=== PATIENT | male | born 2000 | race Hispanic/Latino ===

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

== ENCOUNTER 2018-01-14 09:48 | Emergency (ER) | payer OTHER ==
--- OUTSIDE RECORDS SUMMARY | 2018-01-14 09:50 | XMS REPORT | Clinical Summary ---
:2000 Author Organization [facility] Address [address] [place] [address] Care Team Providers Name Role Phone Miguel Lux Primary Care Provider Allergies No Known Allergies Medications No known medications Active Problems Not on file Social History Tobacco Use Types Packs/Day Years Used Date Never Smoker Alcohol Use Drinks/Week oz/Week Comments No Sex Assigned at Date Recorded Not on file Job Start Date Occupation Industry Not on file Not on file Not on file Travel History Travel Start Travel End No recent travel history available. Last Filed Vital Signs Not on file Plan of Treatment Not on file Results Not on fileafter 01/13/2017 Insurance Payer Benefit Plan / Group Subscriber ID Type Phone Address [employer] - [employer] C[employer] HMO/POS/OPEN ACCESS xxxxxxxxxxx HMO/POS
[2018-01-14 10:56] LABS: Absolute Lymphocytes (CBC) 1.8 K/uL (0.7-4.9); Absolute Monocytes 0.5 K/uL (0.1-1.3); Basophils % 0.6 % (0-1.3); Eosinophils % 1.1 % (0-4.4); Hematocrit 45.6 % (39.6-49.0); Lymphocytes % 33.7 % (15.3-44.8); MCH 28.9 pg (27.0-35.0); MCV 84.4 fL (80-100); MPV 8.4 fL (7.6-11.3); Monocytes % 9.1 % (3.3-12.3)
[2018-01-14] MEDS ORDERED: ONDANSETRON 4 MG/2 ML VIAL ONE (10:57)
[2018-01-14] MEDS ORDERED: NA CHLORIDE 0.9% 1,000 ML ONE (10:57)
[2018-01-14 11:19] LABS: ALT/SGPT 18 U/L (12-78); AST/SGOT 18 U/L (15-37); Albumin 4.4 g/dL (3.4-5.0); Alkaline Phosphatase 87 U/L (45-117); BUN Blood Urea Nitrogen 13 mg/dL (7-18); Bicarbonate 28 mmol/L (21-32); Bilirubin Direct 0.2 mg/dL (0-0.2); Bilirubin Total 0.6 mg/dL (0.2-1.0); Glucose Level 84 mg/dL (74-106); Lipase 80 U/L (73-393); Potassium 3.8 mmol/L (3.5-5.1); Protein, Total 8.4 g/dL (6.4-8.2); Sodium Level 140 mmol/L (136-145)
--- NOTE | 2018-01-14 11:57 | ER ---
Nurse's Notes [facility] Name: Xander Whipple Age: 17 yrs Sex: Male : 2000 Arrival Date: 01/14/2018 Time: 09:50 Bed 5 Private MD: Miguel Lux M Diagnosis: Vomiting;Unspecified abdominal pain Presentation: 01/14 10:12 Presenting complaint: Patient states: vomiting X 3 days, three times this morning, iw denies abd pain, has chest pain when he vomits sometimes, denies diarrhea. Transition of care: patient was not received from another setting of care. Onset of symptoms was January 12, 2018. Risk Assessment: Do you want to hurt yourself or someone else? Patient reports no desire to harm self or others. Initial Sepsis Screen: Does the patient meet any 2 criteria? No. Patient's initial sepsis screen is negative. Does the patient have a suspected source of infection? No. Patient's initial sepsis screen is negative. Care prior to arrival: None. 10:12 Method Of Arrival: Ambulatory iw 10:12 Acuity: LUX 3 iw Historical: - Allergies: 10:13 NKA; iw - Home Meds: 10:13 None [Active]; iw - PMHx: 10:13 None; iw - PSHx: 10:13 None; iw - Immunization history:: Adult Immunizations up to date. - Social history:: Smoking status: Patient/guardian denies using tobacco. - Ebola Screening: : Patient negative for fever greater than or equal to 101.5 degrees Fahrenheit, and additional compatible Ebola Virus Disease symptoms Patient denies exposure to infectious person Patient denies travel to an Ebola-affected area in the 21 days before illness onset No symptoms or risks identified at this time. - Family history:: not pertinent. - Hospitalizations: : No recent hospitalization is reported. Screenin:45 Abuse screen: Denies threats or abuse. Denies injuries from another. Nutritional jl7 screening: No deficits noted. Tuberculosis screening: No symptoms or risk factors identified. Fall Risk IV access (20 points). [place] Fall Scale indicates No Risk (0-24 pts). Assessment: 10:28 General: Appears comfortable, Behavior is calm, cooperative. Pain: Complains of pain in aa5 right upper quadrant, left upper quadrant, right lower quadrant and left lower quadrant Pain does not radiate. Pain currently is 0 out of 10 on a pain scale. Quality of pain is described as crampy, Pain began 2-3 days ago. Is episodic, lasting a few seconds. Neuro: Level of Consciousness is awake, alert, obeys commands, Oriented to person, place, time, situation. Cardiovascular: Heart tones S1 S2 present Rhythm is regular. Respiratory: Airway is patent Respiratory effort is even, unlabored, Respiratory pattern is regular, symmetrical, Breath sounds are clear bilaterally. GI: Abdomen is flat, non-distended, Bowel sounds present X 4 quads. Abd is soft and non tender X 4 quads. Reports nausea, vomiting, Patient currently denies diarrhea. : No signs and/or symptoms were reported regarding the genitourinary system. EENT: Oral mucosa is dry. Derm: Skin is pink, warm \T\ dry. Musculoskeletal: Range of motion: intact in all extremities. 11:30 Reassessment: Patient appears in no apparent distress at this time. Patient and/or jl7 family updated on plan of care and expected duration. Pain level reassessed. Patient is alert, oriented x 3, equal unlabored respirations, skin warm/dry/pink. Vital Signs: 10:13 BP 120 / 88; Pulse 56; Resp 16; Temp 97.8(TE); Pulse Ox 100% on R/A; Weight 61.23 kg; iw Height 5 ft. 8 in. (172.72 cm); Pain 0/10; 12:05 BP 122 / 85; Pulse 56; Resp 16 S; Pulse Ox 100% on R/A; jl7 10:13 Body Mass Index 20.53 (61.23 kg, 172.72 cm) iw ED Course: 09:50 Patient arrived in ED. sb2 09:51 Miguel Lux MD is Private Physician. sb2 10:13 Triage completed. iw 10:13 Arm band placed on. iw 10:23 Kiko Mayers MD is Attending Physician. rn 10:39 Malu Acharya RN is Primary Nurse. aa5 10:40 Initial lab(s) drawn, by me, sent to lab. Inserted saline lock: 22 gauge in right aa5 antecubital area, using aseptic technique. Blood collected. 10:45 Patient has correct armband on for positive identification. Placed in gown. Bed in low jl7 position. Call light in reach. Side rails up X 1. Pulse ox on. NIBP on. 12:07 No provider procedures requiring assistance completed. IV discontinued, intact, jl7 bleeding controlled, No redness/swelling at site. Pressure dressing applied. Administered Medications: 10:50 Drug: NS 0.9% 1000 ml Route: IV; Rate: 1000 ml; Site: right antecubital; aa5 11:50 Follow up: IV Status: Completed infusion jl7 10:50 Drug: Zofran 4 mg Route: IVP; Site: right antecubital; aa5 11:00 Follow up: Response: No adverse reaction aa5 Point of Care Testing: Blood Glucose: 10:40 Blood Glucose: 91 mg/dL; aa5 Ranges: Outcome: 11:56 Discharge ordered by . rn 12:07 Discharged to home ambulatory. jl7 12:07 Condition: stable 12:07 Discharge instructions given to patient, family, Instructed on discharge instructions, follow up and referral plans. medication usage, Demonstrated understanding of instructions, follow-up care, medications, Prescriptions given X 1. 12:07 Patient left the ED. jl7 Signatures: Kymberly Pal, RN Kiko Yuan MD MD rn Calderon, Audri, RN RN aa5 Altagracia Johnson RN RN jl7 Gelndy Zuluaga2
--- NOTE | 2018-01-14 11:57 | EDPHYS ---
Physician Documentation [facility] Name: Xander Whipple Age: 17 yrs Sex: Male : 2000 Arrival Date: 01/14/2018 Time: 09:50 Bed 5 Private MD: Miguel Lux M ED Physician Kiko Mayers HPI: 01/14 11:51 This 17 yrs old Male presents to ER via Ambulatory with complaints of Vomiting.rn 11:51 The patient presents to the emergency department with nausea, vomiting, abdominal pain. rn Onset: The symptoms/episode began/occurred 2 day(s) ago. Possible causes: unknown. The symptoms are aggravated by food , The symptoms are alleviated by nothing. Severity of symptoms: At their worst the symptoms were mild in the emergency department the symptoms have improved. The patient has not experienced similar symptoms in the past. 11:52 REports 2 days of vomiting, not able to keep anything down, + intermittent abd rn cramping, no current pain, no diarrhea, no fever, no known sick contacts. . Historical: - Allergies: 10:13 NKA; iw - Home Meds: 10:13 None [Active]; iw - PMHx: 10:13 None; iw - PSHx: 10:13 None; iw - Immunization history:: Adult Immunizations up to date. - Social history:: Smoking status: Patient/guardian denies using tobacco. - Ebola Screening: : Patient negative for fever greater than or equal to 101.5 degrees Fahrenheit, and additional compatible Ebola Virus Disease symptoms Patient denies exposure to infectious person Patient denies travel to an Ebola-affected area in the 21 days before illness onset No symptoms or risks identified at this time. - Family history:: not pertinent. - Hospitalizations: : No recent hospitalization is reported. ROS: 11:52 Constitutional: Negative for fever, chills, and weight loss, Eyes: Negative for injury, rn pain, redness, and discharge, Neck: Negative for injury, pain, and swelling, Cardiovascular: Negative for chest pain, palpitations, and edema, Respiratory: Negative for shortness of breath, cough, wheezing, and pleuritic chest pain, Abdomen/GI: + nausea/vomiting/abd pain MS/Extremity: Negative for injury and deformity, Skin: Negative for injury, rash, and discoloration, Neuro: Negative for headache, numbness, tingling, and seizure. Exam: 11:52 Constitutional: This is a well developed, well nourished patient who is awake, alert, rn and in no acute distress. Ambulatory to room without difficulty Head/Face: Normocephalic, atraumatic. Eyes: Pupils equal round and reactive to light, extra-ocular motions intact. Lids and lashes normal. Conjunctiva and sclera are non-icteric and not injected. Cornea within normal limits. Periorbital areas with no swelling, redness, or edema. ENT: dry MM Cardiovascular: Regular rate and rhythm, No pulse deficits. Respiratory: No increased work of breathing, no retractions or nasal flaring. Abdomen/GI: soft, non-tender, no masses, no guarding MS/ Extremity: Pulses equal, no cyanosis. Neurovascular intact. Full, normal range of motion. Equal circumference. Neuro: Awake and alert, GCS 15, oriented to person, place, time, and situation. Cranial nerves II-XII grossly intact. Motor strength 5/5 in all extremities. Sensory grossly intact. Cerebellar exam normal. Normal gait. Vital Signs: 10:13 BP 120 / 88; Pulse 56; Resp 16; Temp 97.8(TE); Pulse Ox 100% on R/A; Weight 61.23 kg; iw Height 5 ft. 8 in. (172.72 cm); Pain 0/10; 12:05 BP 122 / 85; Pulse 56; Resp 16 S; Pulse Ox 100% on R/A; jl7 10:13 Body Mass Index 20.53 (61.23 kg, 172.72 cm) iw MDM: 10:23 Patient medically screened. rn 11:52 Differential diagnosis: Nonspecific abd pain, viral gastroenteritis, gastroenteritis. rn Differential diagnosis: appendicitis. Data reviewed: vital signs. Data reviewed: nurses notes, lab test result(s), and as a result, I will discharge patient. Counseling: I had a detailed discussion with the patient and/or guardian regarding: the historical points, exam findings, and any diagnostic results supporting the discharge/admit diagnosis, lab results, the need for outpatient follow up, to return to the emergency department if symptoms worsen or persist or if there are any questions or concerns that arise at home. Response to treatment: the patient's symptoms have markedly improved after treatment, and as a result, I will discharge patient. Special discussion: Based on the patient's Hx, exam, and Dx evaluation, there is no indication for emergent surgery or inpatient Tx. It is understood by the patient/guardian that if the Sx's persist or worsen they need to return immediately for re-evaluation. I discussed with the patient/guardian in detail that at this point there is no indication for admission to the hospital. It is understood, however, that if the symptoms persist or worsen the patient needs to return immediately for re-evaluation. ED course: Normal bloodwork, no vomiting here, no abd pain here, will dc home with pcp f/u and prn zofran, return precautions given and understood. . 01/14 10:31 Order name: Basic Metabolic Panel; Complete Time: 11:35 rn 01/14 10:31 Order name: CBC with Diff; Complete Time: 11:35 rn 01/14 10:31 Order name: Hepatic Function; Complete Time: 11:35 rn 01/14 10:31 Order name: Lipase; Complete Time: 11:35 rn 01/14 10:31 Order name: Flu; Complete Time: 11:35 rn 01/14 10:31 Order name: IV Saline Lock; Complete Time: 10:39 rn 01/14 10:31 Order name: Labs collected and sent; Complete Time: 10:39 rn 01/14 10:32 Order name: Glucose Level; Complete Time: 10:39 rn Administered Medications: 10:50 Drug: NS 0.9% 1000 ml Route: IV; Rate: 1000 ml; Site: right antecubital; aa5 11:50 Follow up: IV Status: Completed infusion jl7 10:50 Drug: Zofran 4 mg Route: IVP; Site: right antecubital; aa5 11:00 Follow up: Response: No adverse reaction aa5 Point of Care Testing: Blood Glucose: 10:40 Blood Glucose: 91 mg/dL; aa5 Ranges: Critical Glucose Levels:Adult <50 mg/dl or >400 mg/dl <40 mg/dl or >180 mg/dl Disposition: 01/14/18 11:56 Discharged to Home. Impression: Vomiting, Unspecified abdominal pain. - Condition is Stable. - Discharge Instructions: Abdominal Pain, Adult, Nausea and Vomiting, Adult. - Prescriptions for Zofran ODT 4 mg Oral tablet,disintegrating - place 1 tablet by TRANSLINGUAL route every 8 hours As needed; 20 tablet. - Medication Reconciliation Form, Thank You Letter, Antibiotic Education, Prescription Opioid Use form. - Follow up: Private Physician; When: As needed; Reason: Recheck today's complaints, Re-evaluation by your physician. - Problem is new. - Symptoms have improved. Signatures: Dispatcher [employer] EDKymberly Krishnan, RN RN Kiko Hilton MD MD rn Calderon, Audri RN RN aa5 Altagracia Johnson RN RN jl7 Corrections: (The following items were deleted from the chart) 12:07 11:56 01/14/2018 11:56 Discharged to Home. Impression: Vomiting; Unspecified abdominal jl7 pain. Condition is Stable. Forms are Medication Reconciliation Form, Thank You Letter, Antibiotic Education, Prescription Opioid Use. Follow up: Private Physician; When: As needed; Reason: Recheck today's complaints, Re-evaluation by your physician. Problem is new. Symptoms have improved. rn
== END 2018-01-14 12:07 | disposition home or self-care (01) ==
LOC: ER 09:48
DX: R11.10 Vomiting, unspecified (principal); R10.9 Unspecified abdominal pain
CPT/HCPCS: 36415; 80048; 80076; 82962; 83690; 85025; 87804; 96361; 96374; 99284; J2405; J7030

== ENCOUNTER 2018-01-18 19:06 | Emergency (ER) | payer OTHER ==
--- OUTSIDE RECORDS SUMMARY | 2018-01-18 19:08 | XMS REPORT | Clinical Summary ---
:2000 Author Organization [facility] Address [address] [place] [address] Care Team Providers Name Role Phone Miguel [...] Not on file Results Not on fileafter 01/17/2017 Insurance Payer Benefit Plan / Group Subscriber ID Type Phone Address [employer] - [employer] C[employer] CIGNA HMO/POS/OPEN ACCESS xxxxxxxxxxx HMO/POS
[2018-01-18] MEDS ORDERED: ONDANSETRON 4 MG/2 ML VIAL ONE (20:25)
[2018-01-18] MEDS ORDERED: FAMOTIDINE 20 MG/2 ML VIAL IV ONE (20:26)
[2018-01-18 22:32] LABS: Absolute Lymphocytes (CBC) 3.7 K/uL (0.7-4.9); Absolute Monocytes 0.8 K/uL (0.1-1.3); Absolute Neutrophil 3.5 K/uL (1.8-8.0); Basophils % 0.7 % (0-1.3); Eosinophils % 0.9 % (0-4.4); Hematocrit 43.4 % (39.6-49.0); Lymphocytes % 45.9 % (15.3-44.8); MCH 29.3 pg (27.0-35.0); MCV 84.1 fL (80-100); MPV 8.9 fL (7.6-11.3); Monocytes % 9.5 % (3.3-12.3); RBC Red Blood Cell Count 5.15 M/uL (4.33-5.43)
[2018-01-18 22:39] LABS: Albumin 4.4 g/dL (3.4-5.0); Bilirubin Direct 0.2 mg/dL (0-0.2); Bilirubin Total 0.6 mg/dL (0.2-1.0); Potassium 3.7 mmol/L (3.5-5.1); Protein, Total 8.2 g/dL (6.4-8.2)
--- NOTE | 2018-01-19 00:30 | ER ---
Nurse's Notes [facility] Name: Xander Whipple Age: 17 yrs Sex: Male : 2000 Arrival Date: 01/18/2018 Time: 19:07 Bed 14 Private MD: Miguel Lux M Diagnosis: Upper abdominal pain, unspecified;Vomiting;Gastritis, unspecified Presentation: 01/18 19:54 Presenting complaint: Patient states: he hasn't be able to eat or drink without aa1 vomiting x 4 days. Mother reports pt has been under a lot of stress and has been depressed lately and is not sure if that may be contributing to his symptoms. Denies SI or drug use. Reports he recently stopped smoking marijuana 2 weeks ago. Transition of care: patient was not received from another setting of care. Onset of symptoms was January 14, 2018. Risk Assessment: Do you want to hurt yourself or someone else? Patient reports no desire to harm self or others. Initial Sepsis Screen: Does the patient meet any 2 criteria? Yes Does the patient have a suspected source of infection? No. Patient's initial sepsis screen is negative. Care prior to arrival: None. 19:54 Method Of Arrival: Ambulatory aa1 19:54 Acuity: LUX 3 aa1 Triage Assessment: 19:54 General: Appears in no apparent distress. comfortable, Behavior is calm, cooperative, aa1 appropriate for age, quiet. Historical: - Allergies: 19:58 NKA; aa1 - Home Meds: 19:58 Zofran Oral [Active]; aa1 - PMHx: 19:58 Depression; aa1 - PSHx: 19:58 None; aa1 - Immunization history:: Adult Immunizations up to date. - Social history:: Smoking status: Patient/guardian denies using tobacco. - Ebola Screening: : Patient denies exposure to infectious person Patient denies travel to an Ebola-affected area in the 21 days before illness onset. Screenin:59 Abuse screen: Denies threats or abuse. Denies injuries from another. Nutritional aa1 screening: Has had N/V for 3 or more days. Tuberculosis screening: No symptoms or risk factors identified. Fall Risk None identified. Assessment: 20:00 General: Appears in no apparent distress. uncomfortable, Behavior is calm, cooperative, jb4 appropriate for age, Reports depression and past SI, no current SI report.. Pain: Complains of pain in epigastric area Pain does not radiate. Pain currently is 8 out of 10 on a pain scale. Quality of pain is described as crampy. Neuro: Level of Consciousness is awake, alert, obeys commands, Oriented to person, place, time, situation. Cardiovascular: Patient's skin is warm and dry. Respiratory: Airway is patent Respiratory effort is even, unlabored, Respiratory pattern is regular, symmetrical. GI: Abdomen is flat, non-distended, Bowel sounds present X 4 quads. Abd is soft and non tender in left upper quadrant, right lower quadrant and left lower quadrant Abdomen is tender to palpation in right upper quadrant. : No signs and/or symptoms were reported regarding the genitourinary system. EENT: No signs and/or symptoms were reported regarding the EENT system. Derm: Skin is intact, Skin is pink, warm \T\ dry. Musculoskeletal: Circulation, motion, and sensation intact. 21:36 Reassessment: Patient appears in no apparent distress at this time. Patient and/or jb4 family updated on plan of care and expected duration. Pain level reassessed. Patient is alert, oriented x 3, equal unlabored respirations, skin warm/dry/pink. 22:30 Reassessment: Patient appears in no apparent distress at this time. Patient and/or jb4 family updated on plan of care and expected duration. Pain level reassessed. Patient is alert, oriented x 3, equal unlabored respirations, skin warm/dry/pink. 23:44 Reassessment: Patient appears in no apparent distress at this time. Patient and/or jb4 family updated on plan of care and expected duration. Pain level reassessed. Patient is alert, oriented x 3, equal unlabored respirations, skin warm/dry/pink. Pt is back from CT. 01/19 00:30 Reassessment: Patient appears in no apparent distress at this time. Patient and/or jb4 family updated on plan of care and expected duration. Pain level reassessed. Patient is alert, oriented x 3, equal unlabored respirations, skin warm/dry/pink. Vital Signs: 01/18 19:54 BP 102 / 91; Pulse 61; Resp 16; Temp 98.1; Pulse Ox 97% on R/A; Weight 60.78 kg; Height aa1 5 ft. 8 in. (172.72 cm); Pain 5/10; 20:00 BP 102 / 91; Pulse 58; Resp 16; Pulse Ox 100% on R/A; mt 20:33 BP 118 / 76; Pulse 59; Resp 16; Pulse Ox 100% on R/A; mt 21:30 BP 116 / 74; Pulse 55; Resp 16; Pulse Ox 100% on R/A; jb4 22:32 BP 109 / 70; Pulse 59; Resp 16; Pulse Ox 98% on R/A; mt 23:44 BP 124 / 76; Pulse 53; Resp 16; Pulse Ox 99% on R/A; jb4 01/19 00:30 BP 115 / 70; Pulse 88; Resp 16; Pulse Ox 97% on R/A; jb4 01/18 19:54 Body Mass Index 20.37 (60.78 kg, 172.72 cm) aa1 ED Course: 01/18 19:07 Patient arrived in ED. al2 19:07 Miguel Lux MD is Private Physician. al2 19:42 Elliot Seth MD is Attending Physician. gs 19:54 Arm band placed on right wrist. aa1 19:56 Triage completed. aa1 19:59 Patient has correct armband on for positive identification. Placed in gown. Bed in low aa1 position. Call light in reach. Pulse ox on. NIBP on. Warm blanket given. 20:12 David Arias RN is Primary Nurse. jb4 20:17 Inserted saline lock: 20 gauge in right antecubital area, using aseptic technique. mt Blood collected. 23:27 Patient moved to [place] via wheelchair. kw1 23:34 CT completed. Patient tolerated procedure well. Patient moved back from [place]. kw1 01/19 00:28 Raji Cox MD is Referral Physician. gs 00:38 No provider procedures requiring assistance completed. IV discontinued, intact, jb4 bleeding controlled. Administered Medications: 01/18 20:48 Drug: Zofran 4 mg Route: IVP; Site: right antecubital; jb4 01/19 00:39 Follow up: Response: No adverse reaction; Nausea is decreased jb4 01/18 20:48 Drug: Pepcid 20 mg Route: IVP; Site: right antecubital; jb4 01/19 00:38 Follow up: Response: No adverse reaction; Nausea is decreased jb4 Outcome: 00:29 Discharge ordered by . 00:38 Discharged to home ambulatory, with family. jb4 00:38 Condition: stable 00:38 Discharge instructions given to patient, family, Instructed on discharge instructions, follow up and referral plans. medication usage, Demonstrated understanding of instructions, follow-up care, medications, Prescriptions given X 2. 00:40 Patient left the ED. jb4 Signatures: Andra Orozco RN RN aa1 David Arias RN RN jb4 Ana Henriquez mt, Gregory, MD MD Tereza Hwang kw1 Sara Carrion2
--- NOTE | 2018-01-19 00:30 | EDPHYS ---
Physician Documentation [facility] Name: Xander Whipple Age: 17 yrs Sex: Male : 2000 Arrival Date: 01/18/2018 Time: 19:07 Bed 14 Private MD: Miguel Lux M ED Physician Elliot Seth HPI: 01/19 00:22 This 17 yrs old Male presents to ER via Ambulatory with complaints of gs Vomiting, Weakness. 00:22 The patient presents to the emergency department with vomiting. Onset: The gs symptoms/episode began/occurred 1 week(s) ago. Possible causes: unknown. Associated signs and symptoms: Pertinent positives: abdominal pain, vomiting. Severity of symptoms: At their worst the symptoms were moderate in the emergency department the symptoms are unchanged. The patient has experienced similar episodes in the past, a few times. The patient has been recently seen at the [facility] Emergency Department, last week. Historical: - Allergies: 01/18 19:58 NKA; aa1 - Home Meds: 19:58 Zofran Oral [Active]; aa1 - PMHx: 19:58 Depression; aa1 - PSHx: 19:58 None; aa1 - Immunization history:: Adult Immunizations up to date. - Social history:: Smoking status: Patient/guardian denies using tobacco. - Ebola Screening: : Patient denies exposure to infectious person Patient denies travel to an Ebola-affected area in the 21 days before illness onset. ROS: 01/19 00:22 All other systems are negative. gs Exam: 00:22 Head/Face: Normocephalic, atraumatic. Eyes: Pupils equal round and reactive to light, gs extra-ocular motions intact. Lids and lashes normal. Conjunctiva and sclera are non-icteric and not injected. Cornea within normal limits. Periorbital areas with no swelling, redness, or edema. ENT: Nares patent. No nasal discharge, no septal abnormalities noted. Tympanic membranes are normal and external auditory canals are clear. Oropharynx with no redness, swelling, or masses, exudates, or evidence of obstruction, uvula midline. Mucous membranes moist. Neck: Trachea midline, no thyromegaly or masses palpated, and no cervical lymphadenopathy. Supple, full range of motion without nuchal rigidity, or vertebral point tenderness. No Meningismus. Chest/axilla: Normal chest wall appearance and motion. Nontender with no deformity. No lesions are appreciated. Cardiovascular: Regular rate and rhythm with a normal S1 and S2. No gallops, murmurs, or rubs. Normal PMI, no JVD. No pulse deficits. Respiratory: Lungs have equal breath sounds bilaterally, clear to auscultation and percussion. No rales, rhonchi or wheezes noted. No increased work of breathing, no retractions or nasal flaring. Back: No spinal tenderness. No costovertebral tenderness. Full range of motion. Skin: Warm, dry with normal turgor. Normal color with no rashes, no lesions, and no evidence of cellulitis. MS/ Extremity: Pulses equal, no cyanosis. Neurovascular intact. Full, normal range of motion. Neuro: Awake and alert, GCS 15, oriented to person, place, time, and situation. Cranial nerves II-XII grossly intact. Motor strength 5/5 in all extremities. Sensory grossly intact. Cerebellar exam normal. Normal gait. 00:22 Constitutional: The patient appears alert, awake. 00:22 Abdomen/GI: Palpation: mild abdominal tenderness, in the epigastric area. Vital Signs: 01/18 19:54 BP 102 / 91; Pulse 61; Resp 16; Temp 98.1; Pulse Ox 97% on R/A; Weight 60.78 kg; Height aa1 5 ft. 8 in. (172.72 cm); Pain 5/10; 20:00 BP 102 / 91; Pulse 58; Resp 16; Pulse Ox 100% on R/A; mt 20:33 BP 118 / 76; Pulse 59; Resp 16; Pulse Ox 100% on R/A; mt 21:30 BP 116 / 74; Pulse 55; Resp 16; Pulse Ox 100% on R/A; jb4 22:32 BP 109 / 70; Pulse 59; Resp 16; Pulse Ox 98% on R/A; mt 23:44 BP 124 / 76; Pulse 53; Resp 16; Pulse Ox 99% on R/A; jb4 01/19 00:30 BP 115 / 70; Pulse 88; Resp 16; Pulse Ox 97% on R/A; jb4 01/18 19:54 Body Mass Index 20.37 (60.78 kg, 172.72 cm) aa1 MDM: 01/18 19:55 Patient medically screened. 01/19 00:22 Differential diagnosis: Nonspecific abd pain, gastritis, pancreatitis, appendicitis. Data reviewed: vital signs, nurses notes. Response to treatment: the patient's symptoms have markedly improved after treatment, and as a result, I will discharge patient. 01/18 20:02 Order name: Basic Metabolic Panel 01/18 20:02 Order name: CBC with Diff 01/18 20:02 Order name: Hepatic Function 01/18 20:02 Order name: Lipase 01/18 22:34 Order name: CBC with Automated Diff; Complete Time: 23:38 EDMS 01/18 22:39 Order name: Basic Metabolic Panel; Complete Time: 23:38 EDMS 01/18 20:02 Order name: IV Saline Lock; Complete Time: 20:18 01/18 20:02 Order name: Labs collected and sent; Complete Time: 20:18 01/18 20:02 Order name: CT Abd/Pelvis - W/Contrast 01/18 22:39 Order name: Liver (Hepatic) Function; Complete Time: 23:38 EDMS 01/18 22:39 Order name: Lipase; Complete Time: 23:38 EDMS Administered Medications: 01/18 20:48 Drug: Zofran 4 mg Route: IVP; Site: right antecubital; [facility] 01/19 00:39 Follow up: Response: No adverse reaction; Nausea is decreased [facility] 01/18 20:48 Drug: Pepcid 20 mg Route: IVP; Site: right antecubital; [facility] 01/19 00:38 Follow up: Response: No adverse reaction; Nausea is decreased [facility] Disposition: 01/19/18 00:29 Discharged to Home. Impression: Upper abdominal pain, unspecified, Vomiting, Gastritis, unspecified. - Condition is Stable. - Discharge Instructions: Nausea and Vomiting, Adult. - Prescriptions for Zofran 4 mg Oral Tablet - take 1 tablet by ORAL route every 12 hours As needed; 10 tablet. Pepcid 20 mg Oral Tablet - take 1 tablet by ORAL route every 12 hours; 60 tablet. - Medication Reconciliation Form, Thank You Letter, Antibiotic Education, Prescription Opioid Use form. - Follow up: Raji Cox MD; When: 2 - 3 days; Reason: Re-evaluation by your physician. Signatures: Dispatcher [employer] EDMS Snow Orozcossa, RN RN aa1 David Arias RN RN jb4 Elliot Seth MD MD gs Corrections: (The following items were deleted from the chart) 00:40 00:29 01/19/2018 00:29 Discharged to Home. Impression: Upper abdominal pain, jb4 unspecified; Vomiting; Gastritis, unspecified. Condition is Stable. Forms are Medication Reconciliation Form, Thank You Letter, Antibiotic Education, Prescription Opioid Use. Follow up: Raji Cox; When: 2 - 3 days; Reason: Re-evaluation by your physician. gs
--- NOTE | 2018-01-19 11:58 | RAD REPORT ---
EXAM DESCRIPTION: CTAbdomen Pelvis W Contrast - 01/19/2018 4:40 am CLINICAL HISTORY: Abdominal pain. abd pain COMPARISON: No comparisons TECHNIQUE: Biphasic CT imaging of the abdomen and pelvis was performed with 100 ml non-ionic IV cont rast. All CT scans are performed using dose optimization technique as appropriate and may include automated exposure control or mA/KV adjustment according to patient size. FINDINGS: The lung bases are clear. The liver, spleen, pancreas, adrenal glands and kidneys are within normal limits. No bowel obstruction, free air, free fluid or abscess. The appendix is normal. No evidence of signi ficant lymphadenopathy. No suspicious bony findings. IMPRESSION: No acute intra-abdominal or pelvic finding.
[2018-01-19 12:33] VITALS: TEMP 98.1
[2018-01-19 12:42] VITALS: BP 115/70; O2SAT 97
== END 2018-01-19 00:40 | disposition home or self-care (01) ==
LOC: ER 19:06
DX: K29.70 Gastritis, unspecified, without bleeding (principal); R10.10 Upper abdominal pain, unspecified; F32.9 Major depressive disorder, single episode, unspecified
CPT/HCPCS: 36415; 74177; 80048; 80076; 83690; 85025; 96374; 96375; 99284; J2405; Q9967

== ENCOUNTER 2018-02-02 23:23 | Emergency (ER) | payer OTHER ==
--- OUTSIDE RECORDS SUMMARY | 2018-02-02 23:25 | XMS REPORT | Clinical Summary ---
:2000 Author Organization [facility] Address [address] [place] [address] Care Team Providers Name Role Phone Miguel [...] Not on file Results Not on fileafter 02/01/2017 Insurance Payer Benefit Plan / Group Subscriber ID Type Phone Address [employer] - [employer] C[employer] C[employer] HMO/POS/OPEN ACCESS xxxxxxxxxxx HMO/POS
--- NOTE | 2018-02-02 23:55 | EDPHYS ---
Physician Documentation [facility] Name: Xander Whipple Age: 17 yrs Sex: Male : 2000 Arrival Date: 02/02/2018 Time: 23:41 Bed 25 Private MD: ED Physician Chris Morejon HPI: 02/02 23:52 This 17 yrs old Male presents to ER via Ambulatory with complaints of sore ma2 throat. 23:52 This 17 yrs old Male presents to ER via Ambulatory with unknown complaint. ma2 23:52 The patient or guardian reports cough. Onset: The symptoms/episode began/occurred ma2 gradually, 2 day(s) ago. Severity of symptoms: At their worst the symptoms were moderate, in the emergency department the symptoms are unchanged. Associated signs and symptoms: Pertinent positives: sore throat, Pertinent negatives: chest pain, diarrhea, ear ache, nausea, rhinorrhea, vomiting. The patient has experienced a previous episode. Historical: - Allergies: 23:44 NKA; tl3 - PMHx: 23:44 Depression; tl3 - PSHx: 23:44 None; tl3 - Immunization history:: Adult Immunizations up to date. - Social history:: Smoking status: Patient/guardian denies using tobacco, never smoked, Patient/guardian denies using alcohol, street drugs, The patient lives with family. - Ebola Screening: : No symptoms or risks identified at this time. - Family history:: not pertinent. ROS: 23:52 Constitutional: Negative for fever, chills, and weight loss, Cardiovascular: Negative ma2 for chest pain, palpitations, and edema, Respiratory: Negative for shortness of breath, cough, wheezing, and pleuritic chest pain, Abdomen/GI: Negative for abdominal pain, nausea, diarrhea, and constipation. 23:52 ENT: Positive for sore throat, Negative for injury or acute deformity, foreign body sensation, Teeth pain 23:52 All other systems are negative. Exam: 23:52 Constitutional: This is a well developed, well nourished patient who is awake, alert, ma2 and in no acute distress. Head/Face: Normocephalic, atraumatic. Eyes: Pupils equal round and reactive to light, extra-ocular motions intact. Lids and lashes normal. Conjunctiva and sclera are non-icteric and not injected. Cornea within normal limits. Periorbital areas with no swelling, redness, or edema. Neck: Trachea midline, no thyromegaly or masses palpated, and no cervical lymphadenopathy. Supple, full range of motion without nuchal rigidity, or vertebral point tenderness. No Meningismus. Chest/axilla: Normal chest wall appearance and motion. Nontender with no deformity. No lesions are appreciated. Cardiovascular: Regular rate and rhythm with a normal S1 and S2. No gallops, murmurs, or rubs. Normal PMI, no JVD. No pulse deficits. Respiratory: Lungs have equal breath sounds bilaterally, clear to auscultation and percussion. No rales, rhonchi or wheezes noted. No increased work of breathing, no retractions or nasal flaring. Abdomen/GI: Soft, non-tender, with normal bowel sounds. No distension or tympany. No guarding or rebound. No evidence of tenderness throughout. 23:52 ENT: TM's: Nose: is normal, Posterior pharynx: Tonsils: bilaterally enlarged, with erythema, Uvula: normal, swelling, is not appreciated, erythema, that is mild, pooling of secretions, is not appreciated. Vital Signs: 23:44 BP 129 / 74; Pulse 82; Resp 18; Temp 98.0; Pulse Ox 100% ; Weight 61.23 kg; Height 5 tl3 ft. 8 in. (172.72 cm); 23:44 Body Mass Index 20.53 (61.23 kg, 172.72 cm) tl3 MDM: 23:47 Patient medically screened. id2 23:52 Differential Diagnosis: Bronchitis Upper Respiratory Infection Pharyngitis. Data ma2 reviewed: vital signs, nurses notes. Counseling: I had a detailed discussion with the patient and/or guardian regarding: the historical points, exam findings, and any diagnostic results supporting the discharge/admit diagnosis, the presence of at least one elevated blood pressure reading (>120/80) during this emergency department visit, the need for outpatient follow up. Administered Medications: No medications were administered Disposition: 02/02/18 23:54 Discharged to Home. Impression: Acute upper respiratory infection, unspecified. - Condition is Stable. - Discharge Instructions: Upper Respiratory Infection, Adult. - Prescriptions for Lidocaine Viscous - take 5 milliliter by ORAL route 3-4 times daily; 30 milliliter. Augmentin 875- 125 mg Oral Tablet - take 1 tablet by ORAL route every 12 hours for 10 days; 20 tablet. - Medication Reconciliation Form, Thank You Letter, Antibiotic Education, Prescription Opioid Use form. - Follow up: Private Physician; When: Tomorrow; Reason: If symptoms return, Continuance of care. Signatures: Chris Morejon MD MD ma2 Agnes Dixon RN RN tl3 Jared Wolfe RN RN rv Corrections: (The following items were deleted from the chart) 02/03 00:01 02/02 23:54 02/02/2018 23:54 Discharged to Home. Impression: Acute upper respiratory rv infection, unspecified. Condition is Stable. Forms are Medication Reconciliation Form, Thank You Letter, Antibiotic Education, Prescription Opioid Use. Follow up: Private Physician; When: Tomorrow; Reason: If symptoms return, Continuance of care. [email or web address]
--- NOTE | 2018-02-02 23:55 | ER ---
Nurse's Notes [facility] Name: Xander Whipple Age: 17 yrs Sex: Male : 2000 Arrival Date: 02/02/2018 Time: 23:41 Bed 25 Private MD: Diagnosis: Acute upper respiratory infection, unspecified Presentation: 02/02 23:41 Presenting complaint: Patient states: pt states that his throat has been hurting for tl3 two days, feels like something is stuck in there. He has been eating and drinking without difficulty. Transition of care: patient was not received from another setting of care. Onset of symptoms was February 01, 2018 at 22:00. Risk Assessment: Do you want to hurt yourself or someone else? Patient reports no desire to harm self or others. Initial Sepsis Screen: Does the patient meet any 2 criteria? No. Patient's initial sepsis screen is negative. Does the patient have a suspected source of infection? No. Patient's initial sepsis screen is negative. Care prior to arrival: None. 23:41 Method Of Arrival: Ambulatory tl3 23:41 Acuity: LUX 4 tl3 Triage Assessment: 23:44 General: Appears uncomfortable, slender, well groomed, well developed, well nourished, tl3 Behavior is calm, cooperative, appropriate for age. Pain: Complains of pain in throat Pain currently is 6 out of 10 on a pain scale. Historical: - Allergies: 23:44 NKA; tl3 - PMHx: 23:44 Depression; tl3 - PSHx: 23:44 None; tl3 - Immunization history:: Adult Immunizations up to date. - Social history:: Smoking status: Patient/guardian denies using tobacco, never smoked, Patient/guardian denies using alcohol, street drugs, The patient lives with family. - Ebola Screening: : No symptoms or risks identified at this time. - Family history:: not pertinent. Screenin/16 00:00 Abuse screen: Denies threats or abuse. Denies injuries from another. Nutritional rv screening: No deficits noted. Tuberculosis screening: No symptoms or risk factors identified. Fall Risk None identified. Assessment: 02/02 23:57 General: Appears in no apparent distress. comfortable, Behavior is calm, cooperative. rv Pain: Complains of pain in throat. Neuro: Level of Consciousness is awake, alert, obeys commands, Oriented to person, place, time, situation. Cardiovascular: Capillary refill < 3 seconds. Respiratory: Airway is patent. GI: Abdomen is flat. : No signs and/or symptoms were reported regarding the genitourinary system. EENT: Throat is reddened. Derm: Skin is intact. Musculoskeletal: No signs and/or symptoms reported regarding the musculoskeletal system. Vital Signs: 23:44 BP 129 / 74; Pulse 82; Resp 18; Temp 98.0; Pulse Ox 100% ; Weight 61.23 kg; Height 5 tl3 ft. 8 in. (172.72 cm); 23:44 Body Mass Index 20.53 (61.23 kg, 172.72 cm) tl3 ED Course: 23:41 Patient arrived in ED. es 23:44 Triage completed. tl3 23:44 Arm band placed on right wrist. tl3 23:46 Chris Morejon MD is Attending Physician. [facility] 02/03 00:00 Patient has correct armband on for positive identification. Call light in reach. Side rv rails up X 1. Pulse ox on. NIBP on. 00:00 No provider procedures requiring assistance completed. Patient did not have IV access rv during this emergency room visit. Administered Medications: No medications were administered Outcome: 02/02 23:54 Discharge ordered by . [facility] 02/03 00:00 Discharged to home ambulatory. rv Condition: good Discharge instructions given to patient, Instructed on discharge instructions, follow up and referral plans. medication usage, Demonstrated understanding of instructions, follow-up care, medications, Prescriptions given X 2. 00:01 Patient left the ED. rv Signatures: Ene Gerard Mohammad, MD MD nv2 Agnes Dixon RN RN tl3 Jared Wolfe RN RN rv
[2018-02-03 00:51] VITALS: BP 129/74; TEMP 98; O2SAT 100
== END 2018-02-03 00:01 | disposition home or self-care (01) ==
LOC: ER 23:23
DX: J06.9 Acute upper respiratory infection, unspecified (principal)
CPT/HCPCS: 99283

== ENCOUNTER 2018-02-28 21:30 | Emergency (ER) | payer OTHER ==
--- OUTSIDE RECORDS SUMMARY | 2018-02-28 21:32 | XMS REPORT | Clinical Summary ---
:2000 Author Organization [facility] Address [address] [place] [address] Care Team Providers Name Role Phone Miguel [...] Not on file Results Not on fileafter 02/27/2017 Insurance Payer Benefit Plan / Group Subscriber ID Type Phone Address [employer] - [employer] CARE CIGNA HMO/POS/OPEN ACCESS xxxxxxxxxxx HMO/POS
[2018-02-28] MEDS ORDERED: PROPOFOL 200 MG/20 ML VIAL IV ONE (22:06)
--- NOTE | 2018-02-28 22:45 | ER ---
Nurse's Notes [facility] Name: Xander Whipple Age: 17 yrs Sex: Male : 2000 Arrival Date: 02/28/2018 Time: 21:32 Bed 6 Private MD: Diagnosis: Right Shoulder Dislocation Presentation: 02/28 21:36 Presenting complaint: Patient states: "I was slap boxing with my brothers and my aj shoulder dislocated about 20 minutes before I got here." Patient smells strongly of marijuana. Transition of care: patient was not received from another setting of care. Onset of symptoms was February 28, 2018. Risk Assessment: Do you want to hurt yourself or someone else? Patient reports no desire to harm self or others. Initial Sepsis Screen: Does the patient meet any 2 criteria? No. Patient's initial sepsis screen is negative. Does the patient have a suspected source of infection? No. Patient's initial sepsis screen is negative. Care prior to arrival: None. 21:36 Method Of Arrival: Wheelchair 21:36 Acuity: LUX 3 aj Triage Assessment: 21:38 General: Appears in no apparent distress. uncomfortable, Behavior is calm, cooperative, aj appropriate for age. Pain: Complains of pain in anterior aspect of right shoulder. Neuro: Level of Consciousness is awake, alert, obeys commands, Oriented to person, place, time, situation, Appropriate for age. Respiratory: Airway is patent Respiratory effort is even, unlabored, Respiratory pattern is regular, symmetrical. Derm: Skin is intact, is healthy with good turgor, Skin is pink, warm \\T\\ dry. normal. Historical: - Allergies: 21:38 NKA; aj - Home Meds: 21:38 None [Active]; aj - PMHx: 21:38 Depression; aj - PSHx: 21:38 None; aj - Immunization history:: Adult Immunizations up to date. - Social history:: Smoking status: Patient/guardian denies using tobacco, Patient uses street drugs, marijuana. - Ebola Screening: : Patient negative for fever greater than or equal to 101.5 degrees Fahrenheit, and additional compatible Ebola Virus Disease symptoms Patient denies exposure to infectious person Patient denies travel to an Ebola-affected area in the 21 days before illness onset No symptoms or risks identified at this time. - Family history:: not pertinent. - Hospitalizations: : No recent hospitalization is reported. Screenin:03 Abuse screen: Denies threats or abuse. Nutritional screening: No deficits noted. ea Tuberculosis screening: No symptoms or risk factors identified. Fall Risk None identified. Assessment: 22:02 General: Appears uncomfortable, Behavior is appropriate for age. Pain: Complains of ea pain in anterior aspect of right shoulder. Neuro: Level of Consciousness is awake, alert, obeys commands, Oriented to person, place, time, situation. Cardiovascular: Patient's skin is warm and dry. Respiratory: Airway is patent Respiratory effort is even, unlabored, Respiratory pattern is regular, symmetrical. GI: No signs and/or symptoms were reported involving the gastrointestinal system. : No signs and/or symptoms were reported regarding the genitourinary system. Derm: Skin is pink, warm \\T\\ dry. Musculoskeletal: Range of motion: limited in right shoulder. 22:40 Reassessment: See conscious sedation flow sheet for vitals during and after procedure. tl2 Pt is AOx3 at this time. Dr. Wyman at bedside discussing results. Sling in place. 22:52 Reassessment: Patient and/or family updated on plan of care and expected duration. Pain ea level reassessed. Patient is alert, oriented x 3, equal unlabored respirations, skin warm/dry/pink. Discharge instructions given to patient, verbalized the understanding of instruction Patient states feeling better. Patient states symptoms have improved. Vital Signs: 21:38 BP 129 / 86; Pulse 99; Resp 20; Temp 98.1; Pulse Ox 100% on R/A; Weight 61.23 kg; aj Height 5 ft. 8 in. (172.72 cm); 22:34 BP 111 / 63; Pulse 67; Resp 17; Pulse Ox 98% ; ea 21:38 Body Mass Index 20.53 (61.23 kg, 172.72 cm) aj ED Course: 21:32 Patient arrived in ED. ds1 21:37 Triage completed. aj 21:38 Arm band placed on left wrist. Patient placed in an exam room. aj 21:43 Alyssa Michaels, REMEDIOS is Primary Nurse. ea 21:48 Raji Wyman MD is Attending Physician. wa 22:00 Consent for conscious sedation explained by staff, explained by physician, signed by tl2 patient. 22:02 Inserted saline lock: 22 gauge in right antecubital area, using aseptic technique. ea 22:04 Patient has correct armband on for positive identification. Bed in low position. Call ea light in reach. Side rails up X 1. 22:15 Assist provider with reduction of right shoulder using traction, Set up for procedure. ea Performed by Raji Wyman MD Immobilized with shoulder immobilizer Patient tolerated well. 22:32 Shoulder Right (2 View) XRAY In Process Unspecified. EDMS 22:43 Ti Solitario MD is Referral Physician. wa 22:51 IV discontinued, intact, bleeding controlled, No redness/swelling at site. Pressure ea dressing applied. Administered Medications: 22:14 Drug: Propofol 80 mg Route: IVP; Site: left antecubital; tl2 22:45 Follow up: Response: No adverse reaction ea 22:15 Drug: Propofol 80 mg Route: IVP; Site: left antecubital; tl2 22:45 Follow up: Response: No adverse reaction ea Outcome: 22:44 Discharge ordered by . wa 22:52 Discharged to home ambulatory, with significant other. ea 22:52 Condition: improved 22:52 Discharge instructions given to patient, Instructed on discharge instructions, follow up and referral plans. Demonstrated understanding of instructions, follow-up care. 22:56 Patient left the ED. ea Signatures: Dispatcher [employer] Lin Castellon RN RN aj Sanford, Demi ds1 Lary Marie RN RN tl2 Alyssa Michaels RN RN ea Appiah, William, MD MD wa Corrections: (The following items were deleted from the chart) 22:23 22:23 Propofol 80 mg IVP in left antecubital tl2 tl2
--- NOTE | 2018-02-28 22:45 | EDPHYS ---
Physician Documentation [facility] Name: Xander Whipple Age: 17 yrs Sex: Male : 2000 Arrival Date: 02/28/2018 Time: 21:32 Bed 6 Private MD: ED Physician Raji Wyman HPI: 02/28 22:20 This 17 yrs old Male presents to ER via Wheelchair with complaints of Shoulder wa Dislocation. 22:20 The patient or guardian complains of an injury, dislocation. right shoulder. Context: wa The problem was sustained at home, resulted from shadow boxing, The patient experiences decreased range of motion, when rotates arm, The patient notes a deformity, a deltoid step-off, h/o multiple dislocations in the past. Onset: The symptoms/episode began/occurred just prior to arrival. Modifying factors: the symptoms are alleviated by nothing. The symptoms are aggravated by movement. Associated signs and symptoms: Pertinent negatives: tingling. Severity of symptoms: At their worst the symptoms were moderate, in the emergency department the symptoms are unchanged. The patient has experienced similar episodes in the past. The patient has not recently seen a physician. Historical: - Allergies: 21:38 NKA; aj - Home Meds: 21:38 None [Active]; aj - PMHx: 21:38 Depression; aj - PSHx: 21:38 None; aj - Immunization history:: Adult Immunizations up to date. - Social history:: Smoking status: Patient/guardian denies using tobacco, Patient uses street drugs, marijuana. - Ebola Screening: : Patient negative for fever greater than or equal to 101.5 degrees Fahrenheit, and additional compatible Ebola Virus Disease symptoms Patient denies exposure to infectious person Patient denies travel to an Ebola-affected area in the 21 days before illness onset No symptoms or risks identified at this time. - Family history:: not pertinent. - Hospitalizations: : No recent hospitalization is reported. ROS: 22:23 Constitutional: Negative for fever, chills, and weight loss, Eyes: Negative for injury, wa pain, redness, and discharge, ENT: Negative for injury, pain, and discharge, Neck: Negative for injury, pain, and swelling, Cardiovascular: Negative for chest pain, palpitations, and edema, Respiratory: Negative for shortness of breath, cough, wheezing, and pleuritic chest pain, Abdomen/GI: Negative for abdominal pain, nausea, vomiting, diarrhea, and constipation, Back: Negative for injury and pain, : Negative for injury, bleeding, discharge, and swelling, Skin: Negative for injury, rash, and discoloration, Neuro: Negative for headache, weakness, numbness, tingling, and seizure, Psych: Negative for depression, anxiety, suicide ideation, homicidal ideation, and hallucinations. 22:23 MS/extremity: Positive for injury or acute deformity, pain, tenderness, of the right shoulder. Exam: 22:23 Constitutional: This is a well developed, well nourished patient who is awake, alert, wa and in no acute distress. Head/Face: Normocephalic, atraumatic. Eyes: Pupils equal round and reactive to light, extra-ocular motions intact. Lids and lashes normal. Conjunctiva and sclera are non-icteric and not injected. Cornea within normal limits. Periorbital areas with no swelling, redness, or edema. ENT: Nares patent. No nasal discharge, no septal abnormalities noted. Tympanic membranes are normal and external auditory canals are clear. Oropharynx with no redness, swelling, or masses, exudates, or evidence of obstruction, uvula midline. Mucous membranes moist. Neck: Trachea midline, no thyromegaly or masses palpated, and no cervical lymphadenopathy. Supple, full range of motion without nuchal rigidity, or vertebral point tenderness. No Meningismus. Chest/axilla: Normal chest wall appearance and motion. Nontender with no deformity. No lesions are appreciated. Cardiovascular: Regular rate and rhythm with a normal S1 and S2. No gallops, murmurs, or rubs. Normal PMI, no JVD. No pulse deficits. Respiratory: Lungs have equal breath sounds bilaterally, clear to auscultation and percussion. No rales, rhonchi or wheezes noted. No increased work of breathing, no retractions or nasal flaring. Abdomen/GI: Soft, non-tender, with normal bowel sounds. No distension or tympany. No guarding or rebound. No evidence of tenderness throughout. Back: No spinal tenderness. No costovertebral tenderness. Full range of motion. Skin: Warm, dry with normal turgor. Normal color with no rashes, no lesions, and no evidence of cellulitis. Neuro: Awake and alert, GCS 15, oriented to person, place, time, and situation. Cranial nerves II-XII grossly intact. Motor strength 5/5 in all extremities. Sensory grossly intact. Cerebellar exam normal. Normal gait. Psych: Awake, alert, with orientation to person, place and time. Behavior, mood, and affect are within normal limits. 22:23 Musculoskeletal/extremity: Extremities: grossly normal except: deformity, pain, tenderness, noted obvious dislocation of R shoulder with deltoid step off. Vital Signs: 21:38 BP 129 / 86; Pulse 99; Resp 20; Temp 98.1; Pulse Ox 100% on R/A; Weight 61.23 kg; aj Height 5 ft. 8 in. (172.72 cm); 22:34 BP 111 / 63; Pulse 67; Resp 17; Pulse Ox 98% ; ea 21:38 Body Mass Index 20.53 (61.23 kg, 172.72 cm) aj Procedures: 22:26 Reduction: of the right shoulder, using traction, Immobilized with shoulder wa immobilizer. Patient tolerated well. Post reduction film - reveals normal alignment. Moderate sedation: Pre-procedure assessment: the patient has been NPO 4 hour(s) prior to arrival, ASA physical classification: I - healthy, no underlying organic disease, Airway assessment: able to hyperextend neck, able to maintain airway, can open mouth without difficulty, Mallampati classification of tongue size: II - faucial pillars and soft palate can be visualized, but uvula is masked by the base of the tongue, Monitoring during procedure: monitor technician, continuous pulse oximetry, nurse at bedside at all times, high flow O2 via NRBM x 15 minutes prior to procedure, Medications employed: propofol IV bolus, Post-procedure assessment: the patient is moderately sedated, Respiratory status: even and unlabored, a reversal agent was not used. MDM: 21:48 Patient medically screened. wa 22:25 Differential diagnosis: dislocation. no concern for acute fx. will re-located and wa obtain post-reduction film. Data reviewed: vital signs, nurses notes. 22:41 Test interpretation: by ED physician or midlevel provider: R shoulder X-ray: normal wa alignment. Response to treatment: the patient's symptoms have markedly improved after treatment. ED course: pt alert and conversant at 2240 hrs. denies complaints. sling in place. will d/c home with family. close f/u with ortho. 02/28 22:19 Order name: Shoulder Right (2 View) XRAY mn 02/28 21:50 Order name: IV Start; Complete Time: 22:02 mn 02/28 21:50 Order name: Cardiac monitoring; Complete Time: 22:02 mn 02/28 21:50 Order name: Pulse Ox Monitoring; Complete Time: 22:02 mn 02/28 21:50 Order name: Oxygen: place on 15 L jan flow for 10 minutes prior to procedure; mn Complete Time: 22:01 Administered Medications: 22:14 Drug: Propofol 80 mg Route: IVP; Site: left antecubital; tl2 22:45 Follow up: Response: No adverse reaction ea 22:15 Drug: Propofol 80 mg Route: IVP; Site: left antecubital; tl2 22:45 Follow up: Response: No adverse reaction ea Disposition: 02/28/18 22:44 Discharged to Home. Impression: Right Shoulder Dislocation. - Condition is Stable. - Discharge Instructions: Shoulder Dislocation, [id number]. - Medication Reconciliation Form, Thank You Letter, Antibiotic Education, Prescription Opioid Use form. - Follow up: Ti Solitario MD; When: 2 - 3 days; Reason: Recheck today's complaints. - Problem is an acute exacerbation. - Symptoms have improved. - Notes: wear sling. do not over reach. no shadow boxing. follow up with the orthopedist next business day for surgical evaluation. You may take motrin or tylenol for pain as needed Signatures: Dispatcher [employer] EDME Lin Chakraborty RN RN aj Knox, Taylor, RN RN tl2 Alyssa Michaels RN RN ea Appiah, William, MD MD mn Corrections: (The following items were deleted from the chart) 22:56 22:44 02/28/2018 22:44 Discharged to Home. Impression: Right Shoulder Dislocation. ea Condition is Stable. Forms are Medication Reconciliation Form, Thank You Letter, Antibiotic Education, Prescription Opioid Use. Follow up: Ti Solitario; When: 2 - 3 days; Reason: Recheck today's complaints. Problem is an acute exacerbation. Symptoms have improved. wa
[2018-02-28 23:51] VITALS: TEMP 98.1
[2018-02-28 23:52] VITALS: BP 111/63; O2SAT 98
--- NOTE | 2018-03-01 07:49 | RAD REPORT ---
EXAM DESCRIPTION: RAD - Shoulder Right 2 View - 02/28/2018 10:32 pm CLINICAL HISTORY: Right shoulder pain FINDINGS: Hill-Sachs deformity is present No dislocation seen
== END 2018-02-28 22:56 | disposition home or self-care (01) ==
LOC: ER 21:30
PROC: 0RSJXZZ Reposition Right Shoulder Joint, External Approach (ICD-10-PCS; principal; 2018-02-28)
DX: S43.004A Unspecified dislocation of right shoulder joint, initial encounter (principal); Y93.71 Activity, boxing; Y92.009 Unspecified place in unspecified non-institutional (private) residence as the place of occurrence of the external cause
CPT/HCPCS: 96374; 99285; J2704

== ENCOUNTER 2018-04-04 16:40 | Emergency (ER) | payer OTHER ==
--- OUTSIDE RECORDS SUMMARY | 2018-04-04 16:43 | XMS REPORT | Clinical Summary ---
:2000 Author Organization [facility] Address [address] [place] [address] Care Team Providers Name Role Phone Miguel [...] Not on file Results Not on fileafter 04/03/2017 Insurance Payer Benefit Plan / Group Subscriber ID Type Phone Address [employer] - [employer] CARE CIGNA HMO/POS/OPEN ACCESS xxxxxxxxxxx HMO/POS
--- NOTE | 2018-04-04 18:57 | EDPHYS ---
Physician Documentation [facility] Name: Xander Whipple Age: 17 yrs Sex: Male : 2000 Arrival Date: 04/04/2018 Time: 16:42 Bed 12 Private MD: ED Physician Pepe Mills HPI: 04/04 18:00 This 17 yrs old Male presents to ER via Ambulatory with complaints of Sore pm1 Throat. 18:00 The patient presents with sore throat. The patient describes throat pain as raw. Onset: pm1 The symptoms/episode began/occurred 2 month(s) ago. Severity of symptoms: in the emergency department the symptoms are unchanged. Modifying factors: The symptoms are alleviated by nothing, the symptoms are aggravated by foods, swallowing, Patient's oral intake status: good unaware of sick contact. Associated signs and symptoms: Pertinent positives: Chest pain with swallowing, Pertinent negatives chills, cough, diarrhea, earache, fever, flu-like symptoms, headache, nausea, shortness of breath, vomiting. The patient has been recently seen by a physician: with similar presenting complaints, Had an EGD and diagnosed with ulcer. Has follow up with GI tomorrow. Has been taking PPI sporadically . Historical: - Allergies: 16:50 NKA; tw2 - Home Meds: 16:50 medication for my ulcer [Active]; tw2 - PMHx: 16:50 Depression; tw2 - PSHx: 16:50 None; tw2 - Immunization history:: Adult Immunizations up to date. - Social history:: Smoking status: Patient/guardian denies using tobacco. - Ebola Screening: : Patient denies travel to an Ebola-affected area in the 21 days before illness onset. ROS: 18:00 Constitutional: Negative for fever, chills, and weight loss, Eyes: Negative for injury, pm1 pain, redness, and discharge, Neck: Negative for injury, pain, and swelling. 18:00 Respiratory: Negative for shortness of breath, cough, wheezing, and pleuritic chest pain, Abdomen/GI: Negative for abdominal pain, nausea, vomiting, diarrhea, and constipation, Back: Negative for injury and pain, : Negative for injury, bleeding, discharge, and swelling, MS/Extremity: Negative for injury and deformity, Skin: Negative for injury, rash, and discoloration, Neuro: Negative for headache, weakness, numbness, tingling, and seizure. 18:00 ENT: Positive for sore throat, Negative for drainage from ear(s), ear pain. 18:00 Cardiovascular: Positive for chest pain, Negative for edema, orthopnea, palpitations. Exam: 18:00 Constitutional: This is a well developed, well nourished patient who is awake, alert, pm1 and in no acute distress. Head/Face: Normocephalic, atraumatic. Eyes: Pupils equal round and reactive to light, extra-ocular motions intact. Lids and lashes normal. Conjunctiva and sclera are non-icteric and not injected. Cornea within normal limits. Periorbital areas with no swelling, redness, or edema. ENT: Nares patent. No nasal discharge, no septal abnormalities noted. Tympanic membranes are normal and external auditory canals are clear. Oropharynx with no redness, swelling, or masses, exudates, or evidence of obstruction, uvula midline. Mucous membranes moist. Neck: Trachea midline, no thyromegaly or masses palpated, and no cervical lymphadenopathy. Supple, full range of motion without nuchal rigidity, or vertebral point tenderness. No Meningismus. Chest/axilla: Normal chest wall appearance and motion. Nontender with no deformity. No lesions are appreciated. Cardiovascular: Regular rate and rhythm with a normal S1 and S2. No gallops, murmurs, or rubs. Normal PMI, no JVD. No pulse deficits. Respiratory: Lungs have equal breath sounds bilaterally, clear to auscultation and percussion. No rales, rhonchi or wheezes noted. No increased work of breathing, no retractions or nasal flaring. Abdomen/GI: Soft, non-tender, with normal bowel sounds. No distension or tympany. No guarding or rebound. No evidence of tenderness throughout. Back: No spinal tenderness. No costovertebral tenderness. Full range of motion. Skin: Warm, dry with normal turgor. Normal color with no rashes, no lesions, and no evidence of cellulitis. MS/ Extremity: Pulses equal, no cyanosis. Neurovascular intact. Full, normal range of motion. 18:00 Neuro: Orientation: is normal, Motor: is normal, Gait: is steady, at a normal pace, without difficulty. Vital Signs: 16:49 BP 120 / 75; Pulse 82; Resp 17; Temp 98.4(O); Pulse Ox 100% on R/A; Weight 58.97 kg tw2 (R); Height 5 ft. 8 in. (172.72 cm); Pain 7/10; 16:49 Body Mass Index 19.77 (58.97 kg, 172.72 cm) tw2 MDM: 17:58 Patient medically screened. pm1 18:55 Data reviewed: vital signs. Data interpreted: Pulse oximetry: on room air is 100 %. pm1 Interpretation: normal. Counseling: I had a detailed discussion with the patient and/or guardian regarding: the historical points, exam findings, and any diagnostic results supporting the discharge/admit diagnosis, lab results, the need for outpatient follow up, to return to the emergency department if symptoms worsen or persist or if there are any questions or concerns that arise at home. 04/04 16:51 Order name: Strep; Complete Time: 18:29 tw2 04/04 18:31 Order name: Throat Culture EDMS Administered Medications: No medications were administered Disposition: 04/05 07:02 Co-signature as Attending Physician, Pepe Mills MD I agree with the assessment and kdr plan of care. Disposition: 04/04/18 18:56 Discharged to Home. Impression: Acute pharyngitis. - Condition is Stable. - Discharge Instructions: Pharyngitis. - Medication Reconciliation Form, Thank You Letter, Antibiotic Education, Work release form form. - Follow up: Emergency Department; When: As needed; Reason: Worsening of condition. Follow up: Private Physician; When: 2 - 3 days; Reason: Recheck today's complaints, Continuance of care, Re-evaluation by your physician. - Problem is new. - Symptoms have improved. Signatures: Dispatcher [employer] EDMS Pepe Mills MD MD [facility] David Garcia NP WIRE WEAVER HELPER pm1 Vilma Shaffer RN RN tw2 Corrections: (The following items were deleted from the chart) 04/04 19:01 18:56 04/04/2018 18:56 Discharged to Home. Impression: Acute pharyngitis. Condition is tw2 Stable. Forms are Work release form, Medication Reconciliation Form, Thank You Letter, Antibiotic Education, Prescription Opioid Use. Follow up: Emergency Department; When: As needed; Reason: Worsening of condition. Follow up: Private Physician; When: 2 - 3 days; Reason: Recheck today's complaints, Continuance of care, Re-evaluation by your physician. Problem is new. Symptoms have improved. pm1
--- NOTE | 2018-04-04 18:57 | ER ---
Nurse's Notes [facility] Name: Xander Whipple Age: 17 yrs Sex: Male : 2000 Arrival Date: 04/04/2018 Time: 16:42 Bed 12 Private MD: Diagnosis: Acute pharyngitis Presentation: 04/04 16:48 Presenting complaint: Patient states: my throat is still hurting, it has been hurting tw2 for 2 months, i had a scope done and they said i had an ulcer in my stomach, it hurts when i swallow. Transition of care: patient was not received from another setting of care. Onset of symptoms was April 04, 2018. Risk Assessment: Do you want to hurt yourself or someone else? Patient reports no desire to harm self or others. Initial Sepsis Screen: Does the patient meet any 2 criteria? No. Patient's initial sepsis screen is negative. Does the patient have a suspected source of infection? No. Patient's initial sepsis screen is negative. Care prior to arrival: None. 16:48 Method Of Arrival: Ambulatory tw2 16:49 Acuity: LUX 4 tw2 Triage Assessment: 16:50 General: Appears in no apparent distress. Behavior is calm, cooperative, appropriate tw2 for age. Pain: Complains of pain in throat. EENT: Reports pain when swallowing. Historical: - Allergies: 16:50 NKA; tw2 - Home Meds: 16:50 medication for my ulcer [Active]; tw2 - PMHx: 16:50 Depression; tw2 - PSHx: 16:50 None; tw2 - Immunization history:: Adult Immunizations up to date. - Social history:: Smoking status: Patient/guardian denies using tobacco. - Ebola Screening: : Patient denies travel to an Ebola-affected area in the 21 days before illness onset. Screenin:59 Abuse screen: Denies threats or abuse. Nutritional screening: No deficits noted. tw2 Tuberculosis screening: No symptoms or risk factors identified. Fall Risk None identified. Assessment: 17:58 General: Appears in no apparent distress. Behavior is calm, cooperative, appropriate tw2 for age. Pain: Complains of pain in uvula, left aspect of posterior pharynx and right aspect of posterior pharynx. Respiratory: Airway is patent Trachea midline Respiratory effort is even, unlabored, Respiratory pattern is regular, symmetrical, Breath sounds are clear bilaterally. EENT: Throat is reddened Reports pain when swallowing. 17:59 Cardiovascular: Capillary refill Patient's skin is warm and dry. GI: No signs and/or tw2 symptoms were reported involving the gastrointestinal system. : No signs and/or symptoms were reported regarding the genitourinary system. Derm: No signs and/or symptoms reported regarding the dermatologic system. Musculoskeletal: Range of motion: intact in all extremities. 18:55 Reassessment: Patient appears in no apparent distress at this time. No changes from tw2 previously documented assessment. Patient and/or family updated on plan of care and expected duration. Pain level reassessed. Patient is alert, oriented x 3, equal unlabored respirations, skin warm/dry/pink. Vital Signs: 16:49 BP 120 / 75; Pulse 82; Resp 17; Temp 98.4(O); Pulse Ox 100% on R/A; Weight 58.97 kg tw2 (R); Height 5 ft. 8 in. (172.72 cm); Pain 7/10; 16:49 Body Mass Index 19.77 (58.97 kg, 172.72 cm) tw2 ED Course: 16:42 Patient arrived in ED. as 16:49 Triage completed. tw2 16:50 Arm band placed on. tw2 17:57 Strep Sent. 17:58 Vilma Shaffer RN is Primary Nurse. tw2 17:58 David Garcia NP is PHCP. pm1 17:58 Pepe Mills MD is Attending Physician. pm1 17:59 Bed in low position. Call light in reach. tw2 18:55 No provider procedures requiring assistance completed. Patient did not have IV access tw2 during this emergency room visit. 19:01 Primary Nurse role handed off by Vilma Shaffer RN tw2 Administered Medications: No medications were administered Outcome: 18:56 Discharge ordered by . pm1 19:01 Discharged to home ambulatory. tw2 19:01 Condition: stable 19:01 Discharge instructions given to patient, Instructed on discharge instructions, follow up and referral plans. Demonstrated understanding of instructions, follow-up care. 19:01 Patient left the ED. tw2 Signatures: Alka Arias Shelby, RN RN David Garcia NP TITLE I DIRECTOR pm1 Shaffer, Vilma, RN RN tw2
[2018-04-04 21:11] VITALS: BP 120/75; TEMP 98.4; O2SAT 100
== END 2018-04-04 19:01 | disposition home or self-care (01) ==
LOC: ER 16:40
DX: J02.9 Acute pharyngitis, unspecified (principal)
CPT/HCPCS: 87070; 87081; 99283

== ENCOUNTER 2018-06-15 15:02 | Emergency (ER) | payer OTHER ==
--- OUTSIDE RECORDS SUMMARY | 2018-06-15 15:03 | XMS REPORT | Clinical Summary ---
:2000 Author Organization [facility] Address [address] [place] [address] Care Team Providers Name Role Phone Miguel [...] Not on file Results Not on fileafter 06/14/2017 Insurance Payer Benefit Plan / Group Subscriber ID Type Phone Address [employer] - [employer] CARE CIG[employer] HMO/POS/OPEN ACCESS xxxxxxxxxxx HMO/POS
--- NOTE | 2018-06-15 15:15 | EDPHYS ---
Physician Documentation [facility] Name: Xander Whipple Age: 17 yrs Sex: Male : 2000 Arrival Date: 06/15/2018 Time: 15:03 Bed 13 Private MD: ED Physician Kiko Mayers HPI: 06/15 15:11 This 17 yrs old Male presents to ER via Ambulatory with complaints of Rash. pm1 15:11 The patient's rash thought to be caused by an unknown cause. The rash is located on the pm1 groin and bilteral thighs. The rash can be described as raised, and itchy. Onset: The symptoms/episode began/occurred 2 day(s) ago. Associated signs and symptoms: Pertinent positives: itching, Pertinent negatives: burning sensation, difficulty breathing, fever, swelling of lips, swelling of throat, swelling of tongue, wheezing. Severity of symptoms: in the emergency department the symptoms are worse. Treatment given at home: None. The patient has not experienced similar symptoms in the past. The patient has not recently seen a physician. Historical: - Allergies: 15:06 NKA; la1 - PMHx: 15:06 Depression; la1 - Immunization history:: Adult Immunizations up to date. - Social history:: Smoking status: Patient/guardian denies using tobacco. - Ebola Screening: : No symptoms or risks identified at this time. ROS: 15:11 Constitutional: Negative for fever, chills, and weight loss, Eyes: Negative for injury, pm1 pain, redness, and discharge, ENT: Negative for injury, pain, and discharge, Neck: Negative for injury, pain, and swelling, Cardiovascular: Negative for chest pain, palpitations, and edema, Respiratory: Negative for shortness of breath, cough, wheezing, and pleuritic chest pain, Abdomen/GI: Negative for abdominal pain, nausea, vomiting, diarrhea, and constipation, Back: Negative for injury and pain, : Negative for injury, bleeding, discharge, and swelling, MS/Extremity: Negative for injury and deformity. 15:11 Neuro: Negative for headache, weakness, numbness, tingling, and seizure. 15:11 Skin: Positive for rash, of the groin and bilateral thighs. Exam: 15:11 Constitutional: This is a well developed, well nourished patient who is awake, alert, pm1 and in no acute distress. Head/Face: Normocephalic, atraumatic. Eyes: Pupils equal round and reactive to light, extra-ocular motions intact. Lids and lashes normal. Conjunctiva and sclera are non-icteric and not injected. Cornea within normal limits. Periorbital areas with no swelling, redness, or edema. ENT: Nares patent. No nasal discharge, no septal abnormalities noted. Tympanic membranes are normal and external auditory canals are clear. Oropharynx with no redness, swelling, or masses, exudates, or evidence of obstruction, uvula midline. Mucous membranes moist. Neck: Trachea midline, no thyromegaly or masses palpated, and no cervical lymphadenopathy. Supple, full range of motion without nuchal rigidity, or vertebral point tenderness. No Meningismus. Chest/axilla: Normal chest wall appearance and motion. Nontender with no deformity. No lesions are appreciated. Cardiovascular: Regular rate and rhythm with a normal S1 and S2. No gallops, murmurs, or rubs. Normal PMI, no JVD. No pulse deficits. Respiratory: Lungs have equal breath sounds bilaterally, clear to auscultation and percussion. No rales, rhonchi or wheezes noted. No increased work of breathing, no retractions or nasal flaring. Abdomen/GI: Soft, non-tender, with normal bowel sounds. No distension or tympany. No guarding or rebound. No evidence of tenderness throughout. Back: No spinal tenderness. No costovertebral tenderness. Full range of motion. 15:11 MS/ Extremity: Pulses equal, no cyanosis. Neurovascular intact. Full, normal range of motion. 15:11 Skin: Appearance: normal except for affected area, abscess, not appreciated, cellulitis, is not appreciated, rash a mild rash is noted, consistent with tinea, on the medial aspect of right thigh and left thigh, groin. 15:11 Neuro: Orientation: is normal, Motor: is normal, moves all fours, Sensation: is normal, no obvious gross deficits, Gait: is steady, at a normal pace, without difficulty. Vital Signs: 15:06 BP 127 / 86; Pulse 86; Resp 16; Temp 98.4; Pulse Ox 98% on R/A; Weight 58.97 kg; Height la1 5 ft. 8 in. (172.72 cm); 15:06 Body Mass Index 19.77 (58.97 kg, 172.72 cm) la1 MDM: 15:08 Patient medically screened. pm1 15:11 Data reviewed: vital signs. Data interpreted: Pulse oximetry: on room air is 98 %. pm1 Interpretation: normal. Counseling: I had a detailed discussion with the patient and/or guardian regarding: the historical points, exam findings, and any diagnostic results supporting the discharge/admit diagnosis, the need for outpatient follow up, for definitive care, a agricultural engineering technologist, a family practitioner, to return to the emergency department if symptoms worsen or persist or if there are any questions or concerns that arise at home. Administered Medications: No medications were administered Disposition: 16:55 Co-signature as Attending Physician, Kiko Mayers MD. rn Disposition: 06/15/18 15:14 Discharged to Home. Impression: Tinea cruris. - Condition is Stable. - Discharge Instructions: Jock Itch. - Prescriptions for Lotrimin Ultra 1 % Topical cream - apply 1 application by TOPICAL route 2 times per day for 7 days; 1 tube. - Medication Reconciliation Form, Thank You Letter, Antibiotic Education, Prescription Opioid Use form. - Follow up: Emergency Department; When: As needed; Reason: Worsening of condition. Follow up: Private Physician; When: 2 - 3 days; Reason: Recheck today's complaints, Continuance of care, Re-evaluation by your physician. - Problem is new. - Symptoms have improved. Signatures: Kiko Mayers MD MD rn Attema, Lee, RN RN la1 David Garcia NP MENTAL HEALTH SPECIALIST pm1 Corrections: (The following items were deleted from the chart) 15:22 15:14 06/15/2018 15:14 Discharged to Home. Impression: Tinea cruris. Condition is la1 Stable. Forms are Medication Reconciliation Form, Thank You Letter, Antibiotic Education, Prescription Opioid Use. Follow up: Emergency Department; When: As needed; Reason: Worsening of condition. Follow up: Private Physician; When: 2 - 3 days; Reason: Recheck today's complaints, Continuance of care, Re-evaluation by your physician. Problem is new. Symptoms have improved. pm1
--- NOTE | 2018-06-15 15:15 | ER ---
Nurse's Notes [facility] Name: Xander Whipple Age: 17 yrs Sex: Male : 2000 Arrival Date: 06/15/2018 Time: 15:03 Bed 13 Private MD: Diagnosis: Tinea cruris Presentation: 06/15 15:05 Presenting complaint: Patient states: Itchy rash in groin area and on thighs for the la1 last few days. Transition of care: patient was not received from another setting of care. Onset of symptoms was June 15, 2018. Risk Assessment: Do you want to hurt yourself or someone else? Patient reports no desire to harm self or others. Initial Sepsis Screen: Does the patient meet any 2 criteria? No. Patient's initial sepsis screen is negative. Does the patient have a suspected source of infection? No. Patient's initial sepsis screen is negative. Care prior to arrival: None. 15:05 Method Of Arrival: Ambulatory la1 15:05 Acuity: LUX 5 la1 Historical: - Allergies: 15:06 NKA; la1 - PMHx: 15:06 Depression; la1 - Immunization history:: Adult Immunizations up to date. - Social history:: Smoking status: Patient/guardian denies using tobacco. - Ebola Screening: : No symptoms or risks identified at this time. Screenin:21 Abuse screen: Denies threats or abuse. Nutritional screening: No deficits noted. la1 Tuberculosis screening: No symptoms or risk factors identified. Fall Risk None identified. Assessment: 15:21 General: Appears in no apparent distress. Behavior is calm, cooperative. Pain: Denies la1 pain. Neuro: No deficits noted. Cardiovascular: Capillary refill < 3 seconds Patient's skin is warm and dry. Respiratory: Airway is patent Respiratory effort is even, unlabored, Respiratory pattern is regular, symmetrical. Derm: Reports itching, and rash to groin area. Vital Signs: 15:06 BP 127 / 86; Pulse 86; Resp 16; Temp 98.4; Pulse Ox 98% on R/A; Weight 58.97 kg; Height la1 5 ft. 8 in. (172.72 cm); 15:06 Body Mass Index 19.77 (58.97 kg, 172.72 cm) la1 ED Course: 15:03 Patient arrived in ED. as 15:06 Triage completed. la1 15:07 David Garcia NP is PHCP. pm1 15:07 Kiko Mayers MD is Attending Physician. pm1 15:07 Arm band placed on left wrist. la1 15:21 Call light in reach. la1 15:21 No provider procedures requiring assistance completed. Patient did not have IV access la1 during this emergency room visit. Administered Medications: No medications were administered Outcome: 15:14 Discharge ordered by . pm1 15: Discharged to home ambulatory. la1 15:21 Condition: stable 15:21 Discharge instructions given to patient, Instructed on discharge instructions, follow up and referral plans. medication usage, Demonstrated understanding of instructions, follow-up care, medications, Prescriptions given X 1. 15:22 Patient left the ED. la1 Signatures: Alka Arias Lee, RN RN la1 David Garcia, SPINNING ROOM WORKER SPINNING ROOM WORKER pm1
[2018-06-15 15:25] VITALS: BP 127/86; TEMP 98.4; O2SAT 98
== END 2018-06-15 15:22 | disposition home or self-care (01) ==
LOC: ER 15:02
DX: B35.6 Tinea cruris (principal); F32.9 Major depressive disorder, single episode, unspecified
CPT/HCPCS: 99282

== ENCOUNTER 2019-01-18 09:03 | Emergency (ER) | payer OTHER ==
[2019-01-18 10:02] LABS: Absolute Lymphocytes (CBC) 1.7 K/uL (0.7-4.9); Basophils % 0.4 % (0-1.3); Hematocrit 45.8 % (39.6-49.0); Lymphocytes % 29.4 % (15.3-44.8); Protime INR 1.28; RBC Red Blood Cell Count 5.43 M/uL (4.33-5.43)
[2019-01-18 10:14] LABS: ALT/SGPT 16 U/L (12-78); AST/SGOT 13 U/L (15-37); Albumin 4.5 g/dL (3.4-5.0); Alkaline Phosphatase 77 U/L (45-117); BUN Blood Urea Nitrogen 14 mg/dL (7-18); Bicarbonate 28 mmol/L (21-32); Bilirubin Direct 0.2 mg/dL (0-0.2); Bilirubin Total 0.9 mg/dL (0.2-1.0); Glucose Level 73 mg/dL (74-106); Magnesium 2.2 mg/dL (1.8-2.4); Potassium 3.7 mmol/L (3.5-5.1); Protein, Total 8.6 g/dL (6.4-8.2); Sodium Level 139 mmol/L (136-145); Troponin (Emerg Dept Use Only) < 0.02 ng/mL (0.0-0.045)
--- NOTE | 2019-01-18 10:14 | RAD REPORT ---
EXAM DESCRIPTION: Tammy Single View01/18/2019 9:55 am CLINICAL HISTORY: Chest pain COMPARISON: 2009 FINDINGS: The lungs appear clear of acute infiltrate. The heart is normal size IMPRESSION: No acute abnormalities displayed
[2019-01-18 10:21] LABS: NT PRO-BNP < 5 pg/mL (<125)
--- NOTE | 2019-01-18 11:00 | ER ---
Nurse's Notes [facility] Name: Xander Whipple Age: 18 yrs Sex: Male : 2000 Arrival Date: 01/18/2019 Time: 09:04 Bed 17 Private MD: Diagnosis: Chest pain, unspecified Presentation: 01/18 09:23 Presenting complaint: Patient states: Intermittent chest pain that is worse on ss repositioning and deep breathing. Denies cough, fever and/or SOB. Transition of care: patient was not received from another setting of care. Onset of symptoms was January 17, 2019. Risk Assessment: Do you want to hurt yourself or someone else? Patient reports no desire to harm self or others. Initial Sepsis Screen: Does the patient meet any 2 criteria? HR > 90 bpm. Does the patient have a suspected source of infection? No. Patient's initial sepsis screen is negative. Care prior to arrival: None. 09:23 Method Of Arrival: Ambulatory ss 09:23 Acuity: LUX 3 ss Historical: - Allergies: 09:25 NKA; ss - Home Meds: 09:25 None [Active]; ss - PMHx: 09:25 Depression; ss - PSHx: 09:25 None; ss - Immunization history:: Adult Immunizations up to date. - Social history:: Smoking status: Patient/guardian denies using tobacco. - Ebola Screening: : Patient denies exposure to infectious person Patient denies travel to an Ebola-affected area in the 21 days before illness onset. Screenin:45 Abuse screen: Denies threats or abuse. Nutritional screening: No deficits noted. em Tuberculosis screening: No symptoms or risk factors identified. Fall Risk None identified. Assessment: 09:45 General: Appears in no apparent distress. comfortable, Behavior is calm, cooperative, em Denies fever. Pain: Complains of pain in anterior aspect of left upper chest Pain does not radiate. Quality of pain is described as sharp, shooting, Pain began 2-3 days ago. Neuro: Level of Consciousness is awake, alert, obeys commands, Oriented to person, place, time, situation, Appropriate for age. Cardiovascular: Capillary refill < 3 seconds Patient's skin is warm and dry. Respiratory: Reports pain with movement pain with respiration Airway is patent Respiratory effort is even, unlabored, Respiratory pattern is regular, symmetrical, Breath sounds are clear bilaterally. Denies shortness of breath at rest. GI: Patient currently denies nausea, vomiting. Derm: Skin is intact, is healthy with good turgor, Skin is pink, warm \T\ dry. Musculoskeletal: Capillary refill < 3 seconds, Range of motion: intact in all extremities. 10:00 General: The previous assessment is accurate. Call light remains within reach. ss 10:40 Reassessment: Patient appears in no apparent distress at this time. Patient and/or em family updated on plan of care and expected duration. Pain level reassessed. Patient is alert, oriented x 3, equal unlabored respirations, skin warm/dry/pink. 11:32 Reassessment: Patient appears in no apparent distress at this time. Patient and/or em family updated on plan of care and expected duration. Pain level reassessed. Patient is alert, oriented x 3, equal unlabored respirations, skin warm/dry/pink. Vital Signs: 09:25 BP 129 / 94; Pulse 96; Resp 16; Temp 98.4(TE); Pulse Ox 100% on R/A; Weight 58.97 kg; ss Height 5 ft. 8 in. (172.72 cm); Pain 6/10; 10:40 BP 105 / 74; Pulse 85; Resp 18; Pulse Ox 100% on R/A; em 09:25 Body Mass Index 19.77 (58.97 kg, 172.72 cm) ED Course: 09:04 Patient arrived in ED. as 09:24 Triage completed. ss 09:25 Arm band placed on right wrist. ss 09:26 Alexandra Renner FNP [facility] nh 09:26 Kiko Mayers MD is Attending Physician. nh 09:31 Josh Umanzor LVN is Primary Nurse. em 09:45 Patient has correct armband on for positive identification. Placed in gown. Bed in low em position. Call light in reach. benzene operator on. Pulse ox on. NIBP on. 09:46 Patient maintains SpO2 saturation greater than 95% on room air. em 09:50 Initial lab(s) drawn, by me, sent to lab. Inserted saline lock: 20 gauge in right em1 antecubital area, using aseptic technique. Blood collected. 09:56 XRAY Chest (1 view) In Process Unspecified. EDMS 11:32 No provider procedures requiring assistance completed. IV discontinued, intact, em bleeding controlled, No redness/swelling at site. Pressure dressing applied. Administered Medications: No medications were administered Outcome: 10:58 Discharge ordered by . ga 11:32 Discharged to home ambulatory. em 11:32 Condition: good 11:32 Discharge instructions given to patient, Instructed on discharge instructions, follow up and referral plans. medication usage, Demonstrated understanding of instructions, follow-up care, medications, Prescriptions given X 1. 11:33 Patient left the ED. em Signatures: Dispatcher [employer] EDPR Alexandra Renner, TRUCK BODY BUILDER APPRENTICE TRUCK BODY BUILDER APPRENTICE ga Josh Umanzor, GRAVEL TRUCK DRIVER GRAVEL TRUCK DRIVER em Hugo, Thiago Nino em1 Sunni Dong, RN RN ss
--- NOTE | 2019-01-18 11:01 | EDPHYS ---
Physician Documentation [facility] Name: Xander Whipple Age: 18 yrs Sex: Male : 2000 Arrival Date: 01/18/2019 Time: 09:04 Bed 17 Private MD: ED Physician Kiko Mayers HPI: 01/18 10:15 This 18 yrs old Male presents to ER via Ambulatory with complaints of Chest nh Pain. 10:15 Onset: The symptoms/episode began/occurred 2 day(s) ago. Associated signs and symptoms: nh The patient has no apparent associated signs or symptoms. Modifying factors: The patient symptoms are alleviated by nothing, the patient symptoms are aggravated by movement. The patient has not experienced similar symptoms in the past. The patient has not recently seen a physician. Historical: - Allergies: : NKA; ss - Home Meds: : None [Active]; ss - PMHx: :25 Depression; ss - PSHx: :25 None; ss - Immunization history:: Adult Immunizations up to date. - Social history:: Smoking status: Patient/guardian denies using tobacco. - Ebola Screening: : Patient denies exposure to infectious person Patient denies travel to an Ebola-affected area in the 21 days before illness onset. ROS: 10:15 Constitutional: Negative for fever, chills, and weight loss, Eyes: Negative for injury, nh pain, redness, and discharge, ENT: Negative for injury, pain, and discharge, Neck: Negative for injury, pain, and swelling, Respiratory: Negative for shortness of breath, cough, wheezing, and pleuritic chest pain, Abdomen/GI: Negative for abdominal pain, nausea, vomiting, diarrhea, and constipation, Back: Negative for injury and pain, : Negative for injury, bleeding, discharge, and swelling, MS/Extremity: Negative for injury and deformity, Skin: Negative for injury, rash, and discoloration, Neuro: Negative for headache, weakness, numbness, tingling, and seizure, Psych: Negative for depression, anxiety, suicide ideation, homicidal ideation, and hallucinations, Allergy/Immunology: Negative for hives, rash, and allergies, Endocrine: Negative for neck swelling, polydipsia, polyuria, polyphagia, and marked weight changes. 10:15 Cardiovascular: Positive for chest pain, Negative for edema, orthopnea, palpitations, paroxysmal nocturnal dyspnea, acute changes. Exam: 10:15 Constitutional: This is a well developed, well nourished patient who is awake, alert, nh and in no acute distress. Head/Face: Normocephalic, atraumatic. Eyes: Pupils equal round and reactive to light, extra-ocular motions intact. Lids and lashes normal. Conjunctiva and sclera are non-icteric and not injected. Cornea within normal limits. Periorbital areas with no swelling, redness, or edema. ENT: Nares patent. No nasal discharge, no septal abnormalities noted. Tympanic membranes are normal and external auditory canals are clear. Oropharynx with no redness, swelling, or masses, exudates, or evidence of obstruction, uvula midline. Mucous membranes moist. Neck: Trachea midline, no thyromegaly or masses palpated, and no cervical lymphadenopathy. Supple, full range of motion without nuchal rigidity, or vertebral point tenderness. No Meningismus. Chest/axilla: Normal chest wall appearance and motion. Nontender with no deformity. No lesions are appreciated. Cardiovascular: Regular rate and rhythm with a normal S1 and S2. No gallops, murmurs, or rubs. Normal PMI, no JVD. No pulse deficits. Respiratory: Lungs have equal breath sounds bilaterally, clear to auscultation and percussion. No rales, rhonchi or wheezes noted. No increased work of breathing, no retractions or nasal flaring. Abdomen/GI: Soft, non-tender, with normal bowel sounds. No distension or tympany. No guarding or rebound. No evidence of tenderness throughout. Back: No spinal tenderness. No costovertebral tenderness. Full range of motion. Skin: Warm, dry with normal turgor. Normal color with no rashes, no lesions, and no evidence of cellulitis. MS/ Extremity: Pulses equal, no cyanosis. Neurovascular intact. Full, normal range of motion. Neuro: Awake and alert, GCS 15, oriented to person, place, time, and situation. Cranial nerves II-XII grossly intact. Motor strength 5/5 in all extremities. Sensory grossly intact. Cerebellar exam normal. Normal gait. Psych: Awake, alert, with orientation to person, place and time. Behavior, mood, and affect are within normal limits. Vital Signs: 09:25 BP 129 / 94; Pulse 96; Resp 16; Temp 98.4(TE); Pulse Ox 100% on R/A; Weight 58.97 kg; ss Height 5 ft. 8 in. (172.72 cm); Pain 6/10; 10:40 BP 105 / 74; Pulse 85; Resp 18; Pulse Ox 100% on R/A; em 09:25 Body Mass Index 19.77 (58.97 kg, 172.72 cm) ss MDM: 09:26 Patient medically screened. nh 10:57 Data reviewed: vital signs, nurses notes, lab test result(s), EKG, radiologic studies, nh I have discussed the patient's presentation/case with the attending Emergency Department Physician; and as a result, I will discharge patient. Counseling: I had a detailed discussion with the patient and/or guardian regarding: the historical points, exam findings, and any diagnostic results supporting the discharge/admit diagnosis, lab results, radiology results, the need for outpatient follow up, to return to the emergency department if symptoms worsen or persist or if there are any questions or concerns that arise at home. 01/18 09:29 Order name: Basic Metabolic Panel co 01/18 09:29 Order name: CBC with Diff; Complete Time: 10: co 01/18 09:29 Order name: LFT's; Complete Time: 10:57 co 01/18 09:29 Order name: Magnesium; Complete Time: :57 co 01/18 09:29 Order name: NT PRO-BNP; Complete Time: 10:57 co 01/18 09:29 Order name: PT-INR; Complete Time: 10: co 01/18 09:29 Order name: Troponin (emerg Dept Use Only); Complete Time: 10:57 co 01/18 09:29 Order name: XRAY Chest (1 view); Complete Time: 10:19 co 01/18 09:29 Order name: EKG; Complete Time: :31 co 01/18 09:29 Order name: Cardiac monitoring; Complete Time: 09:37 co 01/18 09:29 Order name: EKG - Nurse/Tech; Complete Time: 09:37 co 01/18 09:29 Order name: IV Saline Lock; Complete Time: 09:50 co 01/18 09:29 Order name: Labs collected and sent; Complete Time: 09:50 co 01/18 09:30 Order name: Basic Metabolic Panel; Complete Time: 10:57 EDNJ 01/18 09:29 Order name: O2 Per Protocol; Complete Time: 09:37 co 01/18 09:29 Order name: O2 Sat Monitoring; Complete Time: :37 co Administered Medications: No medications were administered Disposition: 11:43 Co-signature as Attending Physician, Kiok Mayers MD. rn Disposition: 01/18/19 10:58 Discharged to Home. Impression: Chest pain, unspecified. - Condition is Stable. - Discharge Instructions: Nonspecific Chest Pain. - Prescriptions for Naprosyn 500 mg Oral Tablet - take 1 tablet by ORAL route 2 times per day take with food; 30 tablet. - Medication Reconciliation Form, Thank You Letter, Antibiotic Education, Prescription Opioid Use form. - Follow up: Private Physician; When: 2 - 3 days; Reason: Recheck today's complaints. - Problem is new. - Symptoms are unchanged. Signatures: Dispatcher [employer] EDNJ Alexandra Renner, HORTICULTURE SUPERINTENDENT HORTICULTURE SUPERINTENDENT co Josh Umanzor, E COMMERCE SPECIALIST E COMMERCE SPECIALIST Kiko Jamison MD MD rn Sunni Dong RN RN ss Corrections: (The following items were deleted from the chart) 11:33 10:58 01/18/2019 10:58 Discharged to Home. Impression: Chest pain, unspecified. em Condition is Stable. Forms are Medication Reconciliation Form, Thank You Letter, Antibiotic Education, Prescription Opioid Use. Follow up: Private Physician; When: 2 - 3 days; Reason: Recheck today's complaints. Problem is new. Symptoms are unchanged. co
[2019-01-18 14:36] VITALS: TEMP 98.4; O2SAT 100
[2019-01-18 14:38] VITALS: BP 105/74
--- NOTE | 2019-01-18 16:12 | EKG ---
Test Date: 2019-01-18 Test Time: 09:31:46 Natural [employer] Trader: RADHA MEASUREMENT RESULTS: Intervals: Rate: 58 VT: 132 QRSD: 90 QT: 376 QTc: 369 [place]: P: 73 VT: 132 QRS: 85 T: 79 INTERPRETIVE STATEMENTS: Sinus bradycardia with sinus arrhythmia Otherwise normal ECG No previous ECG available for comparison Electronically Signed On 01-18-19 16:12:05 SOUNDSCRIBER MECHANIC by Yosvany Zheng
== END 2019-01-18 11:33 | disposition home or self-care (01) ==
LOC: ER 09:03
DX: R07.9 Chest pain, unspecified (principal)
CPT/HCPCS: 36415; 71045; 80048; 80076; 83735; 83880; 84484; 85025; 85610; 93005; 99285

== ENCOUNTER 2019-05-30 20:21 | Emergency (ER) | payer OTHER ==
--- NOTE | 2019-05-30 21:20 | EDPHYS ---
Physician Documentation [facility] Name: Xander Whipple Age: 18 yrs Sex: Male : 2000 Arrival Date: 05/30/2019 Time: 20:23 Bed 25 Private MD: ED Physician Ivan Pina HPI: 05/29 21:14 This 18 yrs old Male presents to ER via Ambulatory with complaints of Swollen jmm Jaw. 21:14 The patient presents with swelling. Onset: The symptoms/episode began/occurred jmm gradually. 21:15 The problem is located in the right jaw. Duration: The symptoms are continuous. jmm Modifying factors: The symptoms are alleviated by nothing, the symptoms are aggravated by nothing. Associated signs and symptoms: Pertinent positives: pain, swelling, Pertinent negatives: fever. This is a 18 year old male with a history of depression that presents to the ED with complaints of right jaw swelling and dental pain which has been ongoing for 2 days. . Historical: - Allergies: 20:46 NKA; rv - PMHx: 20:46 Depression; rv - PSHx: 20:46 None; rv - Immunization history:: Adult Immunizations up to date. - Social history:: Smoking status: Patient/guardian denies using tobacco, Stopped _ months ago 3. ROS: 21:15 Constitutional: Negative for fever, chills, and weight loss. jmm 21:15 Cardiovascular: Negative for chest pain, palpitations, and edema, Respiratory: Negative for shortness of breath, cough, wheezing, and pleuritic chest pain. 21:15 ENT: Positive for dental pain. 21:15 All other systems are negative. Exam: 21:15 Constitutional: This is a well developed, well nourished patient who is awake, alert, jmm and in no acute distress. 21:15 Eyes: EOMI, no conjunctival erythema appreciated 21:15 Chest/axilla: Normal chest wall appearance and motion. Cardiovascular: Regular rate and rhythm. No edema appreciated Respiratory: Normal respirations, no respiratory distress appreciated Abdomen/GI: Non distended, soft Back: Normal ROM Skin: General appearance color normal MS/ Extremity: Moves all extremities, no obvious deformities appreciated, no edema noted to the lower extremities Neuro: Awake and alert, normal gait Psych: Behavior is normal, Mood is normal, Patient is cooperative and pleasant 21:15 Head/face: mild right sided jaw swelling. 21:15 ENT: Dental exam: gum swelling, that is mild, specifically in the lower right second bicuspid (#29) and lower right first molar (#30). 21:15 Neck: no submandibular swelling appreciated. Vital Signs: 20:44 BP 144 / 99; Pulse 66; Resp 16; Temp 98.7; Pulse Ox 100% ; Weight 58.97 kg; Height 5 rv ft. 9 in. (175.26 cm); Pain 10/10; 22:00 BP 138 / 96; Pulse 68; Resp 15; Temp 98.5; Pulse Ox 99% on R/A; rv 20:44 Body Mass Index 19.20 (58.97 kg, 175.26 cm) rv MDM: 20:36 Patient medically screened. [facility] 21:15 Data reviewed: vital signs, nurses notes. Counseling: I had a detailed discussion with ariela the patient and/or guardian regarding: the historical points, exam findings, and any diagnostic results supporting the discharge/admit diagnosis, the need for outpatient follow up, to return to the emergency department if symptoms worsen or persist or if there are any questions or concerns that arise at home. ED course: Patient is alert and non toxic in appearance in the ED. I do not suspect ludwigs. Patient is advised to follow up with dentist for reevaluation. Patient understood and agrees with the plan of care. . Administered Medications: 21:00 Drug: Clindamycin 300 mg Route: PO; rv 21:30 Follow up: Response: No adverse reaction rv Disposition: 05/30/19 21:18 Discharged to Home. Impression: Dental Abscess. - Condition is Stable. - Discharge Instructions: Dental Pain. - Prescriptions for Clindamycin HCl 300 mg Oral Capsule - take 1 capsule by ORAL route every 6 hours for 10 days; 40 capsule. - Medication Reconciliation Form, Thank You Letter, Antibiotic Education, Prescription Opioid Use form. - Follow up: Private Physician; When: 2 - 3 days; Reason: Recheck today's complaints, Continuance of care, Re-evaluation by your physician. Addendum: 06/02/2019 07:37 Co-signature as Attending Physician, Ivan Pina MD I agree with the assessment and c silva plan of care. Signatures: Ivan Pina MD MD cha Mickail, Joel, PA PA [facility] mw2 Jared Wolfe, RN RN rv Corrections: (The following items were deleted from the chart) 05/29 21:34 21:18 05/30/2019 21:18 Discharged to Home. Impression: Dental Abscess. Condition is mw2 Stable. Forms are Medication Reconciliation Form, Thank You Letter, Antibiotic Education, Prescription Opioid Use. Follow up: Private Physician; When: 2 - 3 days; Reason: Recheck today's complaints, Continuance of care, Re-evaluation by your physician. ariela
--- NOTE | 2019-05-30 21:20 | ER ---
Nurse's Notes [facility] Name: Xander Whipple Age: 18 yrs Sex: Male : 2000 Arrival Date: 05/30/2019 Time: 20:23 Bed 25 Private MD: Diagnosis: Dental Abscess Presentation: 05/29 20:44 Chief complaint: Patient states: my jaw is swelling and I couldn't sleep for two days rv now because of the pain. I am supposed to go back to my dentist. Coronavirus screen: Proceed with normal triage. Ebola Screen: No symptoms or risks identified at this time. Initial Sepsis Screen: Does the patient meet any 2 criteria? No. Patient's initial sepsis screen is negative. Does the patient have a suspected source of infection? No. Patient's initial sepsis screen is negative. Risk Assessment: Do you want to hurt yourself or someone else? Patient reports no desire to harm self or others. Onset of symptoms was May 28, 2019 at 08:00. 20:44 Method Of Arrival: Ambulatory rv 20:44 Acuity: LUX 5 rv Triage Assessment: 20:46 General: Appears in no apparent distress. Behavior is calm, cooperative. Pain: rv Complains of pain in right jaw Pain currently is 10 out of 10 on a pain scale. EENT: Dental caries noted in lower right second molar (#31). Neuro: Level of Consciousness is awake, alert, obeys commands, Oriented to person, place, time, situation. Cardiovascular: Patient's skin is warm and dry. Respiratory: Airway is patent. GI: No signs and/or symptoms were reported involving the gastrointestinal system. : No signs and/or symptoms were reported regarding the genitourinary system. Derm: Skin is healthy with good turgor. Historical: - Allergies: 20:46 NKA; rv - PMHx: 20:46 Depression; rv - PSHx: 20:46 None; rv - Immunization history:: Adult Immunizations up to date. - Social history:: Smoking status: Patient/guardian denies using tobacco, Stopped _ months ago 3. Screenin:48 Abuse screen: Denies threats or abuse. Denies injuries from another. Nutritional rv screening: No deficits noted. Tuberculosis screening: No symptoms or risk factors identified. Fall Risk None identified. Assessment: 21:30 Reassessment: see triage notes. rv Vital Signs: 20:44 BP 144 / 99; Pulse 66; Resp 16; Temp 98.7; Pulse Ox 100% ; Weight 58.97 kg; Height 5 rv ft. 9 in. (175.26 cm); Pain 10/10; 22:00 BP 138 / 96; Pulse 68; Resp 15; Temp 98.5; Pulse Ox 99% on R/A; rv 20:44 Body Mass Index 19.20 (58.97 kg, 175.26 cm) rv ED Course: 20:23 Patient arrived in ED. cl3 20:29 Miguel Johnson PA is PHCP. [facility] 20:30 Ivan Pina MD is Attending Physician. [facility] 20:44 Jared Wolfe, REMEDIOS is Primary Nurse. rv 20:46 Triage completed. rv 20:47 Arm band placed on Patient placed in the treatment room, on a stretcher, Patient rv notified of wait time. 20:48 Patient has correct armband on for positive identification. Pulse ox on. NIBP on. rv 21:30 No provider procedures requiring assistance completed. rv 21:30 Patient did not have IV access during this emergency room visit. rv Administered Medications: 21:00 Drug: Clindamycin 300 mg Route: PO; rv 21:30 Follow up: Response: No adverse reaction rv Outcome: 21:18 Discharge ordered by . [facility] 21:30 Discharged to home ambulatory. rv 21:30 Condition: good 21:30 Discharge instructions given to patient, Instructed on discharge instructions, follow rv up and referral plans. medication usage, Demonstrated understanding of instructions, follow-up care, medications, Prescriptions given X 1. 21:34 Patient left the ED. mw2 Signatures: Miguel Johnson PA PA [facility] Kyrie Jacobson mw2 Jared Wolfe, REMEDIOS RN rv Kelsey Kirk cl3
[2019-05-30 21:39] VITALS: BP 144/99; TEMP 98.7; O2SAT 100
== END 2019-05-30 21:34 | disposition home or self-care (01) ==
LOC: ER 20:21
DX: K04.7 Periapical abscess without sinus (principal); F32.9 Major depressive disorder, single episode, unspecified
CPT/HCPCS: 99283

== ENCOUNTER 2019-05-31 02:17 | Emergency (ER) | payer OTHER ==
[2019-05-31] MEDS ORDERED: FENTANYL CITR 100 MCG/2 ML ONE (02:31)
[2019-05-31] MEDS ORDERED: DIAZEPAM 10 MG/2 ML INJ SYRINGE ONE (02:31)
--- NOTE | 2019-05-31 02:43 | ER ---
Nurse's Notes [facility] Name: Xander Whipple Age: 18 yrs Sex: Male : 2000 Arrival Date: 05/31/2019 Time: 02:20 Bed 4 Private MD: Diagnosis: Recurrent dislocation, right shoulder Presentation: 05/30 02:21 Chief complaint: EMS states: they were toned out for report of pt with dislocated right bb shoulder pt states he was asleep when his shoulder dislocated. Coronavirus screen: Proceed with normal triage. Ebola Screen: No symptoms or risks identified at this time. Initial Sepsis Screen: Does the patient meet any 2 criteria? No. Patient's initial sepsis screen is negative. Does the patient have a suspected source of infection? No. Patient's initial sepsis screen is negative. Risk Assessment: Do you want to hurt yourself or someone else? Patient reports no desire to harm self or others. Onset of symptoms was May 31, 2019. 02:21 Method Of Arrival: EMS: [facility] 02:21 Acuity: LUX 3 bb Triage Assessment: 02:15 General: Appears in no apparent distress. Behavior is calm, cooperative, appropriate ea for age. Pain: Complains of pain in right shoulder. Respiratory: Airway is patent Respiratory effort is even, unlabored, Respiratory pattern is regular, symmetrical. Derm: Skin is pink, warm \T\ dry. Musculoskeletal: right shoulder. Injury Description: Deformity sustained to right shoulder. Historical: - Allergies: 02:23 NKA; bb - Home Meds: 02:23 medication for my ulcer [Active]; bb - PMHx: 02:23 Depression; bb - PSHx: 02:23 None; bb - Immunization history:: Adult Immunizations up to date. - Social history:: Smoking status: Patient denies any tobacco usage or history of. Screenin:35 Abuse screen: Denies threats or abuse. Nutritional screening: No deficits noted. ea Tuberculosis screening: No symptoms or risk factors identified. Fall Risk Assessment: 02:15 Reassessment: see triage assessment. ea 03:11 Reassessment: Patient and/or family updated on plan of care and expected duration. Pain ea level reassessed. Patient is alert, oriented x 3, equal unlabored respirations, skin warm/dry/pink. Discharge instruction given to patient, verbalized the understanding of instruction. Pt awaiting on family to come pick him up. 03:33 Reassessment: Patient and/or family updated on plan of care and expected duration. Pain ea level reassessed. Patient is alert, oriented x 3, equal unlabored respirations, skin warm/dry/pink. Discharge instruction given to patient, verbalized the understanding of instruction. Pt left ED via wheelchair assisted to private vehicle per staff Patient states feeling better. Vital Signs: 02:21 BP 129 / 92; Pulse 96; Resp 18 S; Temp 98.1(O); Pulse Ox 100% on R/A; Weight 61.23 kg bb (R); Height 5 ft. 9 in. (175.26 cm) (R); Pain 10/10; 03:12 BP 123 / 88; Pulse 80; Resp 16; Pulse Ox 99% ; ea 02:21 Body Mass Index 19.94 (61.23 kg, 175.26 cm) bb ED Course: 02:20 Patient arrived in ED. bb 02:22 Ivan Pina MD is Attending Physician. jimi 02:23 Triage completed. bb 02:23 Arm band placed on Patient placed in an exam room, on a stretcher, on pulse oximetry. bb 02:30 Inserted saline lock: 20 gauge in right antecubital area, using aseptic technique. ea 02:35 Alyssa Michaels, REMEDIOS is Primary Nurse. ea 02:36 Patient has correct armband on for positive identification. Bed in low position. Call ea light in reach. Side rails up X2. 02:42 Hal Mirza MD is Referral Physician. jimi 02:54 Shoulder Right (2 View) XRAY In Process Unspecified. EDMS 03:34 No provider procedures requiring assistance completed. IV discontinued, intact, ea bleeding controlled, No redness/swelling at site. Pressure dressing applied. Administered Medications: 02:38 Drug: fentaNYL (PF) 50 mcg Route: IVP; Site: left antecubital; ea 03:12 Follow up: Response: No adverse reaction; Pain is decreased ea 02:38 Drug: Valium 5 mg Route: IVP; Site: left antecubital; ea 03:12 Follow up: Response: No adverse reaction; Pain is decreased ea 03:02 Drug: NS 0.9% 500 ml Route: IV; Rate: bolus; Site: left antecubital; ea 03:30 Follow up: Response: No adverse reaction; IV Status: Completed infusion; IV Intake: ea 500ml Intake: 03:30 IV: 500ml; Total: 500ml. ea Outcome: 02:42 Discharge ordered by . jimi 03:34 Discharged to home via wheelchair. ea 03:34 Condition: stable 03:34 Discharge instructions given to patient, Instructed on discharge instructions, follow up and referral plans. medication usage, Demonstrated understanding of instructions, follow-up care, medications, Prescriptions given X 1. 03:34 Patient left the ED. ea Signatures: Dispatcher [employer] EDMS Ivan Pina MD MD cha Mickail, Joel, PA PA jmm Ballard, Brenda, RN RN Alyssa Zimmerman RN RN ea
--- NOTE | 2019-05-31 02:43 | EDPHYS ---
Physician Documentation [facility] Name: Xander Whipple Age: 18 yrs Sex: Male : 2000 Arrival Date: 05/31/2019 Time: 02:20 Bed 4 Private MD: ED Physician Ivan Pina HPI: 05/30 02:34 This 18 yrs old Male presents to ER via EMS with complaints of Shoulder Injury.jmm 02:34 The patient or guardian complains of deformity, an injury. Onset: The symptoms/episode jmm began/occurred acutely. Modifying factors: the symptoms are alleviated by remaining still, The symptoms are aggravated by movement. Associated signs and symptoms: The patient has no apparent associated signs or symptoms. This is a 18 year old male with a history of depression that presents to the ED with complaints of right shoulder pain. Patient states having a history of shoulder dislocations. The dislocation occurred spontaneously. Patient denies other known injury. . Historical: - Allergies: 02:23 NKA; bb - Home Meds: 02:23 medication for my ulcer [Active]; bb - PMHx: 02:23 Depression; bb - PSHx: 02:23 None; bb - Immunization history:: Adult Immunizations up to date. - Social history:: Smoking status: Patient denies any tobacco usage or history of. ROS: 02:34 Constitutional: Negative for fever, chills, and weight loss, Cardiovascular: Negative jmm for chest pain, palpitations, and edema, Respiratory: Negative for shortness of breath, cough, wheezing, and pleuritic chest pain. 02:34 MS/extremity: Positive for injury or acute deformity, swelling. 02:34 All other systems are negative. Exam: 02:34 Head/Face: atraumatic. Eyes: EOMI, no conjunctival erythema appreciated ENT: Moist jmm Mucus Membranes Neck: Trachea midline, Supple Chest/axilla: Normal chest wall appearance and motion. Cardiovascular: Regular rate and rhythm. No edema appreciated Respiratory: Normal respirations, no respiratory distress appreciated Abdomen/GI: Non distended, soft Back: Normal ROM Skin: General appearance color normal 02:34 Constitutional: The patient appears alert, awake, in obvious pain. 02:34 Musculoskeletal/extremity: deformity noted to the right shoulder, held in adduction and internal rotation, full radial pulse, compartments are soft, NVI. 02:34 Skin: Appearance: Color: normal in color. 02:34 Neuro: Orientation: is normal, Mentation: is normal, Memory: is normal. 02:34 Psych: Behavior/mood is pleasant, cooperative, anxious. Vital Signs: 02:21 BP 129 / 92; Pulse 96; Resp 18 S; Temp 98.1(O); Pulse Ox 100% on R/A; Weight 61.23 kg bb (R); Height 5 ft. 9 in. (175.26 cm) (R); Pain 10/10; 03:12 BP 123 / 88; Pulse 80; Resp 16; Pulse Ox 99% ; ea 02:21 Body Mass Index 19.94 (61.23 kg, 175.26 cm) bb Procedures: 02:36 Reduction: of the right shoulder, using manipulation, Immobilized with sling, Patient ariela tolerated well. MDM: 02:23 Patient medically screened. [facility] 02:36 Data reviewed: vital signs, nurses notes. Counseling: I had a detailed discussion with ariela the patient and/or guardian regarding: the historical points, exam findings, and any diagnostic results supporting the discharge/admit diagnosis, the need for outpatient follow up, to return to the emergency department if symptoms worsen or persist or if there are any questions or concerns that arise at home. 05/30 02:34 Order name: Shoulder Right (2 View) XRAY [facility] 05/30 02:34 Order name: Shoulder Immobilizer; Complete Time: 02:38 [facility] 05/30 02:34 Order name: Ice pack; Complete Time: 02:58 [facility] Administered Medications: 02:38 Drug: fentaNYL (PF) 50 mcg Route: IVP; Site: left antecubital; ea 03:12 Follow up: Response: No adverse reaction; Pain is decreased ea 02:38 Drug: Valium 5 mg Route: IVP; Site: left antecubital; ea 03:12 Follow up: Response: No adverse reaction; Pain is decreased ea 03:02 Drug: NS 0.9% 500 ml Route: IV; Rate: bolus; Site: left antecubital; ea 03:30 Follow up: Response: No adverse reaction; IV Status: Completed infusion; IV Intake: ea 500ml Disposition: 05/31/19 02:42 Discharged to Home. Impression: Recurrent dislocation, right shoulder. - Condition is Stable. - Discharge Instructions: Shoulder Dislocation. - Prescriptions for Tylenol- Codeine #3 300-30 mg Oral Tablet - take 1 tablet by ORAL route every 6 hours As needed; 20 tablet. - Medication Reconciliation Form, Thank You Letter, Antibiotic Education, Prescription Opioid Use form. - Follow up: Dr. Hal Mirza; When: 2 - 3 days; Reason: Recheck today's complaints, Continuance of care, Re-evaluation by your physician. - Problem is new. - Symptoms have improved. Addendum: 06/02/2019 07:42 Co-signature as Attending Physician, Ivan Pina MD I agree with the assessment and c silva plan of care. Signatures: Dispatcher [employer] EDCT Ivan Pina MD MD cha Mickail, Joel, PA PA jmm Ballard, Brenda, RN RN Alyssa Zimmerman RN RN ea Corrections: (The following items were deleted from the chart) 05/30 03:34 02:42 05/31/2019 02:42 Discharged to Home. Impression: Recurrent dislocation, right ea shoulder. Condition is Stable. Discharge Instructions: Shoulder Dislocation. Prescriptions for Tylenol-Codeine #3 300-30 mg Oral Tablet - take 1 tablet by ORAL route every 6 hours As needed; 20 tablet. and Forms are Medication Reconciliation Form, Thank You Letter, Antibiotic Education, Prescription Opioid Use. Follow up: Dr. Hal Mirza; When: 2 - 3 days; Reason: Recheck today's complaints, Continuance of care, Re-evaluation by your physician. Problem is new. Symptoms have improved. jimi
[2019-05-31] MEDS ORDERED: NA CHLORIDE 0.9% 500 ML ONE (03:04)
[2019-05-31 03:44] VITALS: TEMP 98.1
[2019-05-31 03:46] VITALS: BP 123/88; O2SAT 99
--- NOTE | 2019-05-31 08:06 | RAD REPORT ---
EXAM DESCRIPTION: Shoulder Right 2 View - 05/31/2019 2:54 am CLINICAL HISTORY: PAIN, dislocation COMPARISON: Shoulder Right 2 View dated 02/28/2018 TECHNIQUE: Internal and external rotation views of the right shoulder were obtained. FINDINGS: No dislocation of the humeral head is present. No acute fracture changes are seen. AC hayley nt is normal in appearance. No acute or suspicious findings. IMPRESSION: No dislocation of the humeral head. No acute shoulder joint finding.
== END 2019-05-31 03:34 | disposition home or self-care (01) ==
LOC: ER 02:17
PROC: 0RSJXZZ Reposition Right Shoulder Joint, External Approach (ICD-10-PCS; principal; 2019-05-31)
DX: M24.411 Recurrent dislocation, right shoulder (principal)
CPT/HCPCS: 73030; 96375; 96374; 99284; 23650; J3360; J3010; J7040

== ENCOUNTER 2019-07-29 11:17 | Emergency (ER) | payer OTHER ==
[2019-07-29] MEDS ORDERED: ONDANSETRON 4 MG/2 ML VIAL ONE (11:46)
[2019-07-29] MEDS ORDERED: FENTANYL CITR 100 MCG/2 ML ONE (11:46)
--- NOTE | 2019-07-29 12:28 | ER ---
Nurse's Notes [facility] Name: Xander Whipple Age: 18 yrs Sex: Male : 2000 Arrival Date: 07/29/2019 Time: 11:18 Bed 15 Private MD: Diagnosis: Disorder of ligament, right shoulder;Dislocation of unspecified parts of right shoulder girdle Presentation: 07/28 11:28 Chief complaint: Patient states: i was playing basketball and my right shoulder just tw2 popped out, it has happened before. Coronavirus screen: Patient denies a cough. Patient denies shortness of breath or difficulty breathing. Patient denies measured and/or subjective temperature greater than 100.4F prior to today's visit. Patient denies travel on a cruise ship or to a country the [facility] currently lists as an affected area. Patient denies contact with known and/or suspected case of COVID-19. Ebola Screen: Patient denies travel to an Ebola-affected area in the 21 days before illness onset. Initial Sepsis Screen: Does the patient meet any 2 criteria? No. Patient's initial sepsis screen is negative. Does the patient have a suspected source of infection? No. Patient's initial sepsis screen is negative. Risk Assessment: Do you want to hurt yourself or someone else? Patient reports no desire to harm self or others. Onset of symptoms was July 29, 2019. 11:28 Method Of Arrival: Wheelchair tw2 11:28 Acuity: LUX 3 tw2 Triage Assessment: 11:30 General: Appears uncomfortable, slender, Behavior is cooperative, appropriate for age, tw2 anxious. Pain: Complains of pain in right shoulder. Musculoskeletal: Circulation, motion, and sensation intact. Range of motion: limited in right shoulder. Injury Description: appears to be a dislocation. Historical: - Allergies: 11:30 NKA; tw2 - Home Meds: 11:30 None [Active]; tw2 - PMHx: 11:30 Depression; tw2 - PSHx: 11:30 None; tw2 - Immunization history:: Adult Immunizations. - Social history:: Smoking status: Patient uses street drugs, marijuana, Patient/guardian denies using tobacco products. Screenin:56 Abuse screen: Denies threats or abuse. Nutritional screening: No deficits noted. tw2 Tuberculosis screening: No symptoms or risk factors identified. Fall Risk None identified. Assessment: 11:32 General: Appears uncomfortable, slender, Behavior is cooperative, appropriate for age, tw2 anxious. Pain: Complains of pain in right shoulder. Neuro: Level of Consciousness is awake, alert, obeys commands, Oriented to person, place, time, situation. Cardiovascular: Patient's skin is warm and dry. Respiratory: Airway is patent Respiratory effort is even, unlabored, Respiratory pattern is regular, symmetrical. GI: No signs and/or symptoms were reported involving the gastrointestinal system. : No signs and/or symptoms were reported regarding the genitourinary system. Musculoskeletal: Circulation, motion, and sensation intact. Capillary refill < 3 seconds, Range of motion: limited in right shoulder. 12:30 Reassessment: Patient and/or family updated on plan of care and expected duration. Pain ah level reassessed. Patient is alert, oriented x 3, equal unlabored respirations, skin warm/dry/pink. Patient states feeling better. Patient states symptoms have improved. Vital Signs: 11:28 Pulse 75; Resp 17; Temp 98.8(TE); Pulse Ox 99% on R/A; Weight 61.23 kg (R); Height 5 tw2 ft. 9 in. (175.26 cm); Pain 8/10; 11:31 BP 117 / 97; tw2 12:45 BP 108 / 77; Pulse 56; Resp 17; Pulse Ox 97% ; ah 11:28 Body Mass Index 19.94 (61.23 kg, 175.26 cm) tw2 ED Course: 11:18 Patient arrived in ED. as 11:29 Beena Harris FNP-C is PHCP. snw 11:29 Pepe Mills MD is Attending Physician. snw 11:29 Triage completed. tw2 11:29 Arm band placed on. tw2 11:32 Bed in low position. Call light in reach. Side rails up X 1. Pulse ox on. NIBP on. tw2 11:37 Eladia Zheng, RN is Primary Nurse. ah 11:40 Inserted saline lock: 22 gauge in left wrist, using aseptic technique. ,using aseptic tw2 technique. by LYDIA Hargrove. 11:50 Assist provider with reduction of right shoulder using manipulation, Performed by tw2 Beena Steven [employer]C Immobilized with sling, Patient tolerated well. 12:26 Ti Solitario MD is Referral Physician. snw 12:45 IV discontinued, intact, bleeding controlled, No redness/swelling at site. Pressure ah dressing applied. 13:13 Shoulder Right (2 View) XRAY In Process Unspecified. EDMS Administered Medications: 11:40 Drug: fentaNYL (PF) 50 mcg Route: IVP; Site: left wrist; tw2 12:40 Follow up: Response: No adverse reaction ah 11:47 Drug: fentaNYL (PF) 50 mcg Route: IVP; Site: left wrist; tw2 12:47 Follow up: Response: No adverse reaction Outcome: 12:27 Discharge ordered by . snw 12:45 Discharged to home ambulatory. 12:45 Condition: good 12:45 Discharge instructions given to patient, Instructed on discharge instructions, follow up and referral plans. medication usage, Demonstrated understanding of instructions, follow-up care, medications, Prescriptions given X 1. 12:58 Patient left the ED. Signatures: Dispatcher [employer] EDNJ Beena Harris FNP-C [employer]-CsnAlka Sheppard Tara, RN RN 2 Eladia Zheng RN RN
--- NOTE | 2019-07-29 12:28 | EDPHYS ---
Physician Documentation [facility] Name: Xander Whipple Age: 18 yrs Sex: Male : 2000 Arrival Date: 07/29/2019 Time: 11:18 Bed 15 Private MD: ED Physician Pepe Mills HPI: 07/28 12:01 This 18 yrs old Male presents to ER via Wheelchair with complaints of Shoulder snw Injury - dislocation. 12:01 The patient or guardian complains of decreased range of motion, deformity, an injury, snw pain, that is acute. left shoulder. Context: The problem was sustained outdoors, at a sports field or court, resulted from from a chronic condition, playing sports, basketball, The patient experiences decreased range of motion, The patient notes a deformity, an anterior fullness, a deltoid step-off. Onset: The symptoms/episode began/occurred suddenly, just prior to arrival. Modifying factors: the symptoms are alleviated by nothing. The symptoms are aggravated by movement. Associated signs and symptoms: Pertinent positives: right shoulder dislocation x 4 or 5 episodes, today went to play basketball and went up and shoulder dislocated. Severity of symptoms: At their worst the symptoms were moderate. Treatment prior to arrival includes: no previous treatment. The patient has experienced similar episodes in the past, multiple times, and the symptoms today are exactly the same. The patient has not recently seen a physician. has not been able to follow up with Orthopedics. Historical: - Allergies: 11:30 NKA; tw2 - Home Meds: 11:30 None [Active]; tw2 - PMHx: 11:30 Depression; tw2 - PSHx: 11:30 None; tw2 - Immunization history:: Adult Immunizations. - Social history:: Smoking status: Patient uses street drugs, marijuana, Patient/guardian denies using tobacco products. ROS: 12:00 Constitutional: Negative for fever, chills, and weight loss, Eyes: Negative for injury, snw pain, redness, and discharge, ENT: Negative for injury, pain, and discharge, Neck: Negative for injury, pain, and swelling, Cardiovascular: Negative for chest pain, palpitations, and edema, Respiratory: Negative for shortness of breath, cough, wheezing, and pleuritic chest pain, Abdomen/GI: Negative for abdominal pain, nausea, vomiting, diarrhea, and constipation, Back: Negative for injury and pain, : Negative for injury, bleeding, discharge, and swelling, Skin: Negative for injury, rash, and discoloration, Neuro: Negative for headache, weakness, numbness, tingling, and seizure, Psych: Negative for depression, anxiety, suicide ideation, homicidal ideation, and hallucinations. 12:00 MS/extremity: Positive for injury or acute deformity, decreased range of motion, deformity, pain, of the right shoulder. Exam: 11:58 Constitutional: This is a well developed, well nourished patient who is awake, alert, snw and in no acute distress. Head/Face: Normocephalic, atraumatic. Eyes: Pupils equal round and reactive to light, extra-ocular motions intact. Lids and lashes normal. Conjunctiva and sclera are non-icteric and not injected. Cornea within normal limits. Periorbital areas with no swelling, redness, or edema. ENT: Nares patent. No nasal discharge, no septal abnormalities noted. Tympanic membranes are normal and external auditory canals are clear. Oropharynx with no redness, swelling, or masses, exudates, or evidence of obstruction, uvula midline. Mucous membranes moist. Neck: Trachea midline, no thyromegaly or masses palpated, and no cervical lymphadenopathy. Supple, full range of motion without nuchal rigidity, or vertebral point tenderness. No Meningismus. Chest/axilla: Normal chest wall appearance and motion. Nontender with no deformity. No lesions are appreciated. Cardiovascular: Regular rate and rhythm with a normal S1 and S2. No gallops, murmurs, or rubs. Normal PMI, no JVD. No pulse deficits. Respiratory: Lungs have equal breath sounds bilaterally, clear to auscultation and percussion. No rales, rhonchi or wheezes noted. No increased work of breathing, no retractions or nasal flaring. Abdomen/GI: Soft, non-tender, with normal bowel sounds. No distension or tympany. No guarding or rebound. No evidence of tenderness throughout. Back: No spinal tenderness. No costovertebral tenderness. Full range of motion. Skin: Warm, dry with normal turgor. Normal color with no rashes, no lesions, and no evidence of cellulitis. Neuro: Awake and alert, GCS 15, oriented to person, place, time, and situation. Cranial nerves II-XII grossly intact. Motor strength 5/5 in all extremities. Sensory grossly intact. Cerebellar exam normal. Normal gait. Psych: Awake, alert, with orientation to person, place and time. Behavior, mood, and affect are within normal limits. 11:58 Musculoskeletal/extremity: Extremities: grossly normal except: noted in the right shoulder: decreased ROM, deformity, Circulation is intact in all extremities. Vital Signs: 11:28 Pulse 75; Resp 17; Temp 98.8(TE); Pulse Ox 99% on R/A; Weight 61.23 kg (R); Height 5 tw2 ft. 9 in. (175.26 cm); Pain 8/10; 11:31 BP 117 / 97; tw2 12:45 BP 108 / 77; Pulse 56; Resp 17; Pulse Ox 97% ; ah 11:28 Body Mass Index 19.94 (61.23 kg, 175.26 cm) tw2 Procedures: 11:58 Reduction: of the right shoulder, using traction, manipulation, Immobilized with snw shoulder immobilizer. Patient tolerated well. assisted Dr. Mills. MDM: 11:34 Patient medically screened. snw 12:25 Data reviewed: vital signs, nurses notes. Data interpreted: Pulse oximetry: on room air snw is 99 %. Interpretation: normal. Counseling: I had a detailed discussion with the patient and/or guardian regarding: the historical points, exam findings, and any diagnostic results supporting the discharge/admit diagnosis, radiology results, the need for outpatient follow up, to return to the emergency department if symptoms worsen or persist or if there are any questions or concerns that arise at home. Response to treatment: the patient's symptoms have markedly improved after treatment. Special discussion: I have referred the patient to see his PCP for further evaluation of high blood pressure. Based on the history and exam findings, there is no indication for further emergent testing or inpatient evaluation. I discussed with the patient/guardian the need to see the orthopedic surgeon for further evaluation of the symptoms. I discussed with the patient/guardian the need to see the primary care provider for further evaluation of the symptoms. 07/28 11:54 Order name: Shoulder Right (2 View) XRAY bd 07/28 11:54 Order name: IV Start; Complete Time: 11:54 tw2 07/28 11:54 Order name: Radha; Complete Time: 11:54 tw2 Administered Medications: 11:40 Drug: fentaNYL (PF) 50 mcg Route: IVP; Site: left wrist; tw2 12:40 Follow up: Response: No adverse reaction 11:47 Drug: fentaNYL (PF) 50 mcg Route: IVP; Site: left wrist; tw2 12:47 Follow up: Response: No adverse reaction Disposition: 07/29/19 12:27 Discharged to Home. Impression: Disorder of ligament, right shoulder, Dislocation of unspecified parts of right shoulder girdle. - Condition is Stable. - Discharge Instructions: Shoulder Dislocation, How to Use a Shoulder Immobilizer, Shoulder Pain. - Prescriptions for Mobic 7.5 mg Oral Tablet - take 1 tablet by ORAL route once daily take with food; 20 tablet. - Medication Reconciliation Form, Thank You Letter, Antibiotic Education, Prescription Opioid Use form. - Follow up: Emergency Department; When: As needed; Reason: Worsening of condition. Follow up: Ti Solitario MD; When: 2 - 3 days; Reason: Recheck today's complaints, Continuance of care. Addendum: 07/30/2019 13:33 Co-signature as Attending Physician, Pepe Mills MD I agree with the assessment and k dr plan of care. Signatures: Dispatcher [employer] EDVT Pepe Mills MD MD [facility] Beena Harris, MANAGER PROTEIN-C MANAGER PROTEIN-Csnw Vilma Shaffer RN RN 2 Eladia Zheng RN RN Corrections: (The following items were deleted from the chart) 07/28 12:04 12:04 Chart complete. snw snw 12:58 12:27 07/29/2019 12:27 Discharged to Home. Impression: Disorder of ligament, right ah shoulder; Dislocation of unspecified parts of right shoulder girdle. Condition is Stable. Forms are Medication Reconciliation Form, Thank You Letter, Antibiotic Education, Prescription Opioid Use. Follow up: Emergency Department; When: As needed; Reason: Worsening of condition. Follow up: Ti Solitario; When: 2 - 3 days; Reason: Recheck today's complaints, Continuance of care. snw
--- NOTE | 2019-07-29 13:19 | RAD REPORT ---
EXAM DESCRIPTION: Shoulder Right 2 View - 07/29/2019 1:12 pm CLINICAL HISTORY: post reduction, shoulder pain COMPARISON: Shoulder Right 2 View dated 05/31/2019 TECHNIQUE: Internal and external rotation views of the right shoulder were obtained labeled post red uction. FINDINGS: Humeral head is in normal position. No fracture. Acromial humeral joint space is normal. N o humeral head or bony glenoid defect seen. AC joint is normal in appearance. No acute or suspicious findings. IMPRESSION: Humeral head in anatomic position. No acute bone or joint finding.
[2019-07-29 13:30] VITALS: TEMP 98.8
[2019-07-29 13:32] VITALS: BP 108/77; O2SAT 97
--- OUTSIDE RECORDS SUMMARY | 2019-07-29 16:20 | XMS REPORT | Clinical Summary ---
:2000 Author Organization [facility] Address [address] [place] [address] Care Team Providers Name Role Phone Miguel Lux Primary Care Provider Unavailable Allergies No Known Allergies Medications No known [...] Not on file Results Not on fileafter 07/28/2018 Insurance Payer Benefit Plan / Group Subscriber ID Type Phone A ddress CIG[employer] - MGD CARE CIGNA HMO/POS/OPEN ACCESS xxxxxxxxxxx HMO/POS
== END 2019-07-29 12:58 | disposition home or self-care (01) ==
LOC: ER 11:17
PROC: 0RSJXZZ Reposition Right Shoulder Joint, External Approach (ICD-10-PCS; principal; 2019-07-29)
DX: S43.304A Dislocation of unspecified parts of right shoulder girdle, initial encounter (principal); M24.211 Disorder of ligament, right shoulder; X58.XXXA Exposure to other specified factors, initial encounter; Y93.67 Activity, basketball; Y92.310 Basketball court as the place of occurrence of the external cause
CPT/HCPCS: 73030; 96374; 99284; 23650; J3010; J2405

== ENCOUNTER 2019-11-02 01:12 | Emergency (ER) | payer OTHER ==
--- OUTSIDE RECORDS SUMMARY | 2019-11-02 01:15 | XMS REPORT | Clinical Summary ---
:2000 Author Organization [facility] Address [address] [place] [address] Care Team Providers Name Role Phone Miguel [...] Not on file Results Not on fileafter 11/01/2018 Insurance Payer Benefit Plan / Group Subscriber ID Type Phone A ddress CIGNA - MGD CARE CIGNA HMO/POS/OPEN ACCESS xxxxxxxxxxx HMO/POS
--- NOTE | 2019-11-02 01:59 | EDPHYS ---
Physician Documentation [facility] Name: Xander Whipple Age: 19 yrs Sex: Male : 2000 Arrival Date: 11/02/2019 Time: 01:15 Bed 20 Private MD: ED Physician Kiko Mayers HPI: 11/01 01:55 This 19 yrs old Male presents to ER via Ambulatory with complaints of Shoulder rn Injury. 01:55 The patient or guardian complains of decreased range of motion. right shoulder. rn Context: The problem was sustained at home, resulted from stretching. Onset: The symptoms/episode began/occurred just prior to arrival. Modifying factors: the symptoms are alleviated by nothing. The symptoms are aggravated by movement, rotation of arm. Associated signs and symptoms: Pertinent negatives:. Severity of symptoms: At their worst the symptoms were moderate, in the emergency department the symptoms have resolved. The patient has experienced similar episodes in the past. The patient has not recently seen a physician. Reports multiple shoulder dislocations in past, was stretching tonight and shoulder dislocated, not able to get it back in, so came in for reduction.. Historical: - Allergies: 01:20 NKA; sg - PMHx: 01:20 Depression; sg - PSHx: 01:20 None; sg - Immunization history:: Adult Immunizations up to date. - Family history:: not pertinent. - Social history:: Smoking status: Patient/guardian denies using. - Hospitalizations: : No recent hospitalization is reported. ROS: 01:55 Constitutional: Negative for fever, chills, and weight loss, MS/Extremity: + decreased rn ROM right shoulder Exam: 01:55 Constitutional: This is a well developed, well nourished patient who is awake, alert, rn holding arm passively to side of body and lowered/out in front. MS/ Extremity: Pulses equal, no cyanosis. NV intact. + painful ROM with rotation or lifting right arm. Vital Signs: 01:25 BP 114 / 74; Pulse 84; Resp 18; Temp 98.3; Pulse Ox 100% ; wh MDM: 01:25 Patient medically screened. rn 01:55 Differential diagnosis: Anterior dislocation with fracture, Anterior dislocation rn without fracture. Data reviewed: vital signs, nurses notes, radiologic studies, plain films, and as a result, I will discharge patient. Counseling: I had a detailed discussion with the patient and/or guardian regarding: the historical points, exam findings, and any diagnostic results supporting the discharge/admit diagnosis, radiology results, the need for outpatient follow up, to return to the emergency department if symptoms worsen or persist or if there are any questions or concerns that arise at home. Response to treatment: the patient's symptoms have markedly improved after treatment, and as a result, I will discharge patient. Special discussion: I discussed with the patient/guardian in detail that at this point there is no indication for admission to the hospital. It is understood, however, that if the symptoms persist or worsen the patient needs to return immediately for re-evaluation. ED course: Xray ordered, when patient was moving, felt a pop and now feels shoulder back in, went in spontaneously. No meds given. States ready to go home.. 11/01 01:30 Order name: XRAY Shoulder (1 View) rn Administered Medications: 02:02 Not Given (Physician Discretion): fentaNYL (PF) 75 mcg IVP once; RASS on ADMIN: wh Combtv4, Very Agttd3, Agttd2, Rstlss1, AlertClm0, Drwsy-1, Lt Sdtn-2, Mod Sdtn-3, Dp Sdtn-4, UnArsble-5 02:02 Not Given (Physician Discretion): Zofran (Ondansetron) 4 mg IVP once; over 2 minutes 02:02 Not Given (Physician Discretion): Ativan 1 mg IVP once Disposition: 11/02/19 01:59 Discharged to Home. Impression: Recurrent dislocation, right shoulder. - Condition is Stable. - Discharge Instructions: Shoulder Dislocation. - Medication Reconciliation Form, Thank You Letter, Antibiotic Education, Prescription Opioid Use form. - Follow up: Private Physician; When: As needed; Reason: Recheck today's complaints, Re-evaluation by your physician. - Problem is an acute exacerbation. - Symptoms have improved. Signatures: Dispatcher [employer] EDMS Ti Pan RN RN sg Nieto, Roman, MD MD rn Habalo, Winsy Corrections: (The following items were deleted from the chart) 02:01 01:30 IV Saline Lock ordered. anabela 02:18 01:59 11/02/2019 01:59 Discharged to Home. Impression: Recurrent dislocation, right wh shoulder. Condition is Stable. Forms are Medication Reconciliation Form, Thank You Letter, Antibiotic Education, Prescription Opioid Use. Follow up: Private Physician; When: As needed; Reason: Recheck today's complaints, Re-evaluation by your physician. Problem is an acute exacerbation. Symptoms have improved. rn
--- NOTE | 2019-11-02 01:59 | ER ---
Nurse's Notes [facility] Name: Xander Whipple Age: 19 yrs Sex: Male : 2000 Arrival Date: 11/02/2019 Time: 01:15 Bed 20 Private MD: Diagnosis: Recurrent dislocation, right shoulder Presentation: 11/01 01:20 Chief complaint: Patient states: My right shoulder has popped out of place again, this sg has happened before and Im usually able to get it to go back where it needs to be but this time I could not. Coronavirus screen: Client denies travel out of the [place] in the last 14 days. At this time, the client does not indicate any symptoms associated with coronavirus-19. Ebola Screen: Patient negative for fever greater than or equal to 101.5 degrees Fahrenheit, and additional compatible Ebola Virus Disease symptoms Patient denies exposure to infectious person. Patient denies travel to an Ebola-affected area in the 21 days before illness onset. No symptoms or risks identified at this time. Initial Sepsis Screen: Does the patient meet any 2 criteria? No. Patient's initial sepsis screen is negative. Does the patient have a suspected source of infection? No. Patient's initial sepsis screen is negative. Risk Assessment: Do you want to hurt yourself or someone else? Patient reports no desire to harm self or others. Onset of symptoms was November 02, 2019. Care prior to arrival: None. Transition of care: patient was not received from another setting of care. 01:20 Method Of Arrival: Ambulatory 01:20 Acuity: LUX 3 sg Triage Assessment: 01:35 Injury Description: Dislocation. wh Historical: - Allergies: 01:20 NKA; sg - PMHx: 01:20 Depression; sg - PSHx: 01:20 None; sg - Immunization history:: Adult Immunizations up to date. - Family history:: not pertinent. - Social history:: Smoking status: Patient/guardian denies using. - Hospitalizations: : No recent hospitalization is reported. Screenin:30 Abuse screen: Denies threats or abuse. Denies injuries from another. Nutritional wh screening: No deficits noted. Tuberculosis screening: No symptoms or risk factors identified. Fall Risk None identified. Assessment: 01:30 General: Appears in no apparent distress. Behavior is calm, cooperative, appropriate wh for age. Pain: Complains of pain in right shoulder. Neuro: Level of Consciousness is awake, alert, obeys commands, Oriented to person, place, time, situation, Appropriate for age. Cardiovascular: Capillary refill < 3 seconds. Respiratory: Airway is patent Respiratory effort is even, unlabored, Respiratory pattern is regular, symmetrical. GI: Abdomen is flat, non-distended. : No signs and/or symptoms were reported regarding the genitourinary system. EENT: No signs and/or symptoms were reported regarding the EENT system. Derm: Skin is intact, is healthy with good turgor, Skin is pink, warm \T\ dry. normal. Musculoskeletal: Range of motion: limited in right shoulder. 02:00 Reassessment: Pt asking to speak with provider, States He thinks it might have popped wh back in. MD Mayers notified. 02:15 Reassessment: Patient appears in no apparent distress at this time. Patient and/or wh family updated on plan of care and expected duration. Pain level reassessed. Patient is alert, oriented x 3, equal unlabored respirations, skin warm/dry/pink. Patient states symptoms have improved. Vital Signs: 01:25 BP 114 / 74; Pulse 84; Resp 18; Temp 98.3; Pulse Ox 100% ; wh ED Course: 01:15 Patient arrived in ED. bp1 01:20 Arm band placed on. sg 01:24 Triage completed. sg 01:25 Kiko Mayers MD is Attending Physician. rn 01:29 Gabriela Duarte is Primary Nurse. wh 01:30 Patient has correct armband on for positive identification. Bed in low position. Call light in reach. Side rails up X 1. Pulse ox on. NIBP on. 01:43 XRAY Shoulder (1 View) In Process Unspecified. EDMS 02:16 No provider procedures requiring assistance completed. Patient did not have IV access during this emergency room visit. Administered Medications: 02:02 Not Given (Physician Discretion): fentaNYL (PF) 75 mcg IVP once; RASS on ADMIN: Combtv4, Very Agttd3, Agttd2, Rstlss1, AlertClm0, Drwsy-1, Lt Sdtn-2, Mod Sdtn-3, Dp Sdtn-4, UnArsble-5 02:02 Not Given (Physician Discretion): Zofran (Ondansetron) 4 mg IVP once; over 2 minutes 02:02 Not Given (Physician Discretion): Ativan 1 mg IVP once Outcome: 01:59 Discharge ordered by . rn 02:17 Discharged to home ambulatory. 02:17 Condition: stable 02:17 Discharge instructions given to patient, Instructed on discharge instructions, follow up and referral plans. POC Demonstrated understanding of instructions, follow-up care, POC 02:18 Patient left the ED. Signatures: Dispatcher [employer] EDTi Conte RN RN sg Nieto, Roman, MD MD rn Habalo, [facility] Mayte Abebe
[2019-11-02 02:23] VITALS: BP 114/74; TEMP 98.3; O2SAT 100
--- NOTE | 2019-11-02 11:49 | RAD REPORT ---
EXAM DESCRIPTION: RAD - Shoulder 1 View - 11/02/2019 1:43 am CLINICAL HISTORY: PAIN COMPARISON: Shoulder Right 2 View dated 07/29/2019; Shoulder Right 2 View dated 05/31/2019 FINDINGS: No acute fracture or dislocation is seen. Mild laxity at the glenohumeral joint is probabl y present.
== END 2019-11-02 02:18 | disposition home or self-care (01) ==
LOC: ER 01:12
DX: M24.411 Recurrent dislocation, right shoulder (principal)
CPT/HCPCS: 73020; 99283

== ENCOUNTER 2020-01-13 07:48 | Emergency (ER) | payer OTHER ==
[2020-01-13 08:27] LABS: Urine Blood TRACE (NEG); Urine Glucose NEGATIVE (NEG); Urine Protein 1+ (NEG); Urine Specific Gravity 1.015 (1.005-1.030); Urine pH 8.5 (5.0-7.0)
--- NOTE | 2020-01-13 09:00 | RAD REPORT ---
EXAM DESCRIPTION: CT - Stone Protocol - 01/13/2020 8:35 am CLINICAL HISTORY: back right flank COMPARISON: CT December 2017 TECHNIQUE: Axial [address] imaging of the abdomen was performed without oral or IV contrast. All CT scans are performed using dose optimization technique as appropriate and may include automated exposure control or mA/KV adjustment according to patient size. FINDINGS: No suspicious findings in the lung bases. The liver, spleen, and pancreas show no suspicious findings for a non IV contrast study. Gallbladder and biliary tree are also without suspicious finding. No hydronephrosis or suspicious mass in either kidney. Isodense masses and pyelonephritis are not exc luded. No adrenal abnormalities. Urinary bladder is fully contracted limiting assessment. A [address] phlebolith is present lateral pelvic side wall at the hip joint level. This is new or enlarged fr om 2018. There is a 3 millimeter calcification in the lower pelvis in the expected location of the ri ght UVJ. No phlebolith was present in this location in 2018. The paucity of intra-abdominal fat resul ts in crowding of the isodense bowel bladder and ureters. Exact course of the ureter cannot be traced . There is no suspicion of hydronephrosis. Right pelvic floor calcification is probably a phlebolith given the absence of any history specific for right flank pain No dilated bowel loops or bowel wall thickening. No free air, free fluid or inflammatory stranding. N o hernia, mass or bulky lymphadenopathy. Appendix is not clearly defined but there are no direct or indirect findings for appendicitis. No suspicious bony findings. Overall exam sensitivity is decreased when no contrast is administered. IMPRESSION: Non-contrast CT abdomen study shows no significant or suspicious finding. A 3 millimeter calcification in the lower right pelvis, favored to be a phlebolith, is in proximity t o the right UVJ and is potentially a ureteral calculus. However, there is no hydronephrosis or right renal edema evident. Correlation is needed with any UA abnormalities or additional history that might support a nonobstructing or intermittently obstructing calculus.
--- OUTSIDE RECORDS SUMMARY | 2020-01-13 09:16 | XMS REPORT | Clinical Summary ---
:2000 Author Organization [facility] Address [address] [place] [address] Care Team Providers Name Role Phone Miguel [...] Not on file Results Not on fileafter 01/12/2019 Insurance Payer Benefit Plan / Subscriber ID Effective Dates Phone Addre ss Type Group CIGNA - MGD CIGNA [id number] 2016-Present HMO/POS CARE HMO/POS/OPEN ACCESS
[2020-01-13 09:51] LABS: Urine Amorphous Sediment 4+ /HPF (NONE SEEN); Urine Bacteria <20 /HPF (NONE SEEN); Urine Culture Reflex Order REFLEXED; Urine Mucus HEAVY /HPF (NONE SEEN); Urine RBC <5 /HPF (NONE SEEN)
--- NOTE | 2020-01-13 10:28 | EDPHYS ---
Physician Documentation [facility] Name: Xander Whipple Age: 19 yrs Sex: Male : 2000 Arrival Date: 01/13/2020 Time: 07:50 Bed 13 Private MD: ED Physician Jamie Tovar HPI: 01/12 08:43 This 19 yrs old Male presents to ER via Ambulatory with complaints of fatigue, ps1 Back Pain. 08:43 patient has had low back pain for 2 weeks. Now states that he has fatigue. No VPT. Has ps1 dysuria. Pain in right lower back and flank. No fever. . Historical: - Allergies: 07:56 NKA; tw2 - Home Meds: 07:56 None [Active]; tw2 - PMHx: 07:56 Depression; tw2 - PSHx: 07:56 None; tw2 - Immunization history:: Adult Immunizations. - Social history:: Smoking status: Patient uses street drugs, marijuana, "like twice a week". ROS: 08:43 Constitutional: Negative for fever, chills, and weight loss, Eyes: Negative for injury, ps1 pain, redness, and discharge, Cardiovascular: Negative for chest pain, palpitations, and edema, Respiratory: Negative for shortness of breath, cough, wheezing, and pleuritic chest pain, Abdomen/GI: Negative for abdominal pain, nausea, vomiting, diarrhea, and constipation, MS/Extremity: Negative for injury and deformity, Skin: Negative for injury, rash, and discoloration, Neuro: Negative for headache, weakness, numbness, tingling, and seizure. 08:43 Back: Positive for flank pain, of the right low back. Exam: 08:43 Constitutional: This is a well developed, well nourished patient who is awake, alert, ps1 and in no acute distress. Head/Face: Normocephalic, atraumatic. Eyes: Pupils equal round and reactive to light, extra-ocular motions intact. Lids and lashes normal. Conjunctiva and sclera are non-icteric and not injected. Cardiovascular: Regular rate and rhythm. No gallops, murmurs, or rubs. Normal PMI, no JVD. No pulse deficits. Respiratory: Lungs have equal breath sounds bilaterally, clear to auscultation and percussion. No rales, rhonchi or wheezes noted. No increased work of breathing, no retractions or nasal flaring. Abdomen/GI: Soft, non-tender, with normal bowel sounds. No distension or tympany. No guarding or rebound. No evidence of tenderness throughout. Skin: Warm, dry with normal turgor. Normal color with no rashes, no lesions, and no evidence of cellulitis. MS/ Extremity: Pulses equal, no cyanosis. Neurovascular intact. Full, normal range of motion. Neuro: Awake and alert, GCS 15, oriented to person, place, time, and situation. Cranial nerves II-XII grossly intact. Sensory grossly intact. 08:43 Back: pain, that is mild, of the right mid back and right low back. Vital Signs: 07:54 BP 134 / 88; Pulse 80; Resp 18; Temp 98.2(TE); Pulse Ox 100% on R/A; Weight 63.5 kg tw2 (R); Height 5 ft. 9 in. (175.26 cm) (R); Pain 7/10; 09:24 BP 119 / 84; Pulse 87; Resp 17; Pulse Ox 99% on R/A; tw2 10:25 BP 118 / 91; Pulse 59; Resp 17; Pulse Ox 100% on R/A; tw2 07:54 Body Mass Index 20.67 (63.50 kg, 175.26 cm) tw2 MDM: 08:24 Patient medically screened. ps1 10:29 Differential Diagnosis sepsis, UTI, Kidney Stone, Flank pain, MSK pain, and others. ps1 Data reviewed: vital signs, nurses notes, lab test result(s), radiologic studies, and as a result, I will discharge patient. Counseling: I had a detailed discussion with the patient and/or guardian regarding: the historical points, exam findings, and any diagnostic results supporting the discharge/admit diagnosis, lab results, radiology results, the need for outpatient follow up, to return to the emergency department if symptoms worsen or persist or if there are any questions or concerns that arise at home. ED course: No fever in ED. BP WNL. Unlikely sepsis. Small (possible) stone in R ureter \\R\\3mm. OP medical expulsion therapy. Will add keflex for UTI. Strong return precautions given. Tolerating PO. . 01/12 08:23 Order name: Urine Dipstick--Ancillary (enter results); Complete Time: 08:31 bd 01/12 08:32 Order name: Urine Microscopic Only; Complete Time: 10:25 iw 01/12 08:10 Order name: Urine Dipstick-Ancillary (obtain specimen); Complete Time: 08:13 ps1 01/12 08:10 Order name: CT Stone Protocol; Complete Time: 09:06 ps1 01/12 09:52 Order name: Urine Culture EDMS Administered Medications: No medications were administered Disposition: 01/13/20 10:27 Discharged to Home. Impression: Acute cystitis. - Condition is Stable. - Discharge Instructions: Urinary Tract Infection, Adult, Kidney Stones, [place]. - Prescriptions for ketorolac 10 mg Oral tablet - take 1 tablet by ORAL route every 4-6 hours not to exceed 40mg in 24hrs for up to 5 days total use; 10 tablet. Keflex 500 mg Oral Capsule - take 1 capsule by ORAL route every 8 hours for 10 days; 30 capsule. Zofran 4 mg Oral Tablet - take 1 tablet by ORAL route every 12 hours As needed; 20 tablet. Flomax 0.4 mg Oral Capsule, Sust. Release 24 hr - take 1 capsule by ORAL route once daily 1/2 hour following the same meal each day; 30 capsule. - Medication Reconciliation Form, Thank You Letter, Antibiotic Education, Prescription Opioid Use form. - Follow up: Private Physician; When: 48 Hours; Reason: Recheck today's complaints, Continuance of care, Dr. Castañeda in [place]. (Urology). Follow up: Emergency Department; When: As needed; Reason: Fever > 102 F, Trouble breathing, Worsening of condition. - Problem is new. - Symptoms are unchanged. Signatures: Dispatcher [employer] EDMS Vilma Shaffer RN RN tw2 Jamie Tovar MD MD ps1 Corrections: (The following items were deleted from the chart) 10:48 10:27 01/13/2020 10:27 Discharged to Home. Impression: Acute cystitis. Condition is tw2 Stable. Forms are Medication Reconciliation Form, Thank You Letter, Antibiotic Education, Prescription Opioid Use. Follow up: Private Physician; When: 48 Hours; Reason: Recheck today's complaints, Continuance of care, Dr. Castañeda in [place]. (Urology). Follow up: Emergency Department; When: As needed; Reason: Fever > 102 F, Trouble breathing, Worsening of condition. Problem is new. Symptoms are unchanged. ps1
--- NOTE | 2020-01-13 10:28 | ER ---
Nurse's Notes [facility] Name: Xander Whipple Age: 19 yrs Sex: Male : 2000 Arrival Date: 01/13/2020 Time: 07:50 Bed 13 Private MD: Diagnosis: Acute cystitis Presentation: 01/12 07:54 Chief complaint: Patient states: i am having some weakness and a lot of back pain for 2 tw2 weeks, no injury, also my stomach hurts and i dont have an appetite, i drunk 2 shots last night too. Coronavirus screen: At this time, the client does not indicate any symptoms associated with coronavirus-19. Ebola Screen: Patient denies travel to an Ebola-affected area in the 21 days before illness onset. Initial Sepsis Screen: Does the patient meet any 2 criteria? No. Patient's initial sepsis screen is negative. Does the patient have a suspected source of infection? No. Patient's initial sepsis screen is negative. Risk Assessment: Do you want to hurt yourself or someone else? Patient reports no desire to harm self or others. Onset of symptoms was January 13, 2020. 07:54 Method Of Arrival: Ambulatory tw2 07:54 Acuity: LUX 3 tw2 Triage Assessment: 07:56 General: Appears in no apparent distress. slender, Behavior is calm, cooperative, tw2 appropriate for age. Pain: Complains of pain in abdomen. Neuro: Reports weakness "for 2 weeks". GI: Reports lower abdominal pain, upper abdominal pain, intolerance of fluids, intolerance of food. Musculoskeletal: Reports pain in back. Historical: - Allergies: 07:56 NKA; tw2 - Home Meds: 07:56 None [Active]; tw2 - PMHx: 07:56 Depression; tw2 - PSHx: 07:56 None; tw2 - Immunization history:: Adult Immunizations. - Social history:: Smoking status: Patient uses street drugs, marijuana, "like twice a week". Screenin:57 Abuse screen: Denies threats or abuse. Nutritional screening: No deficits noted. tw2 Tuberculosis screening: No symptoms or risk factors identified. Fall Risk None identified. Assessment: 07:56 General: Appears in no apparent distress. slender, Behavior is calm, cooperative, tw2 appropriate for age. Pain: Complains of pain in back. Neuro: Level of Consciousness is awake, alert, obeys commands, Oriented to person, place, time, situation. Neuro: Reports weakness "for 2 weeks". Cardiovascular: Heart tones S1 S2 Patient's skin is warm and dry. Respiratory: Airway is patent Respiratory effort is even, unlabored, Respiratory pattern is regular, symmetrical, Breath sounds are clear bilaterally. GI: Abdomen is flat, Bowel sounds present X 4 quads. Reports lower abdominal pain, upper abdominal pain, intolerance of fluids, intolerance of food, Patient currently denies nausea, vomiting. : No signs and/or symptoms were reported regarding the genitourinary system. EENT: No signs and/or symptoms were reported regarding the EENT system. Derm: No signs and/or symptoms reported regarding the dermatologic system. Musculoskeletal: Reports pain in back. Musculoskeletal: Circulation, motion, and sensation intact. Range of motion: intact in all extremities. 09:24 Reassessment: Patient appears in no apparent distress at this time. No changes from tw2 previously documented assessment. Patient and/or family updated on plan of care and expected duration. Pain level reassessed. Patient is alert, oriented x 3, equal unlabored respirations, skin warm/dry/pink. 10:25 Reassessment: Patient appears in no apparent distress at this time. No changes from tw2 previously documented assessment. Patient and/or family updated on plan of care and expected duration. Pain level reassessed. Patient is alert, oriented x 3, equal unlabored respirations, skin warm/dry/pink. 10:47 Reassessment: Patient appears in no apparent distress at this time. No changes from tw2 previously documented assessment. Patient and/or family updated on plan of care and expected duration. Pain level reassessed. Patient is alert, oriented x 3, equal unlabored respirations, skin warm/dry/pink. Vital Signs: 07:54 BP 134 / 88; Pulse 80; Resp 18; Temp 98.2(TE); Pulse Ox 100% on R/A; Weight 63.5 kg tw2 (R); Height 5 ft. 9 in. (175.26 cm) (R); Pain 7/10; 09:24 BP 119 / 84; Pulse 87; Resp 17; Pulse Ox 99% on R/A; tw2 10:25 BP 118 / 91; Pulse 59; Resp 17; Pulse Ox 100% on R/A; tw2 07:54 Body Mass Index 20.67 (63.50 kg, 175.26 cm) tw2 ED Course: 07:50 Patient arrived in ED. ag5 07:52 Bed in low position. Call light in reach. Pulse ox on. NIBP on. tw2 07:54 Vilma Shaffer, RN is Primary Nurse. tw2 07:55 Triage completed. tw2 07:57 Arm band placed on. tw2 08:06 Jamie Tovar MD is Attending Physician. ps1 08:35 CT Stone Protocol In Process Unspecified. EDMS 09:11 Urine Microscopic Only Sent. tw2 10:47 No provider procedures requiring assistance completed. Patient did not have IV access tw2 during this emergency room visit. Administered Medications: No medications were administered Outcome: 10:27 Discharge ordered by . ps1 10:47 Discharged to home ambulatory. tw2 10:47 Condition: stable 10:47 Discharge instructions given to patient, Instructed on discharge instructions, follow up and referral plans. no drinking with medication, no driving heavy equipment, medication usage, Demonstrated understanding of instructions, follow-up care, medications, Prescriptions given X 4. 10:48 Patient left the ED. tw2 Signatures: Dispatcher [employer] EDNE Vilma Shaffer RN RN tw2 Jamie Tovar MD MD ps1 Phillip Waters ag5
[2020-01-13 12:24] VITALS: TEMP 98.2
[2020-01-13 12:31] VITALS: BP 118/91; O2SAT 100
== END 2020-01-13 10:48 | disposition home or self-care (01) ==
LOC: ER 07:48
DX: N30.00 Acute cystitis without hematuria (principal)
CPT/HCPCS: 74176; 76377; 81003; 81015; 87086; 87088; 99284

== ENCOUNTER 2021-02-11 13:12 | Emergency (ER) | payer OTHER ==
--- OUTSIDE RECORDS SUMMARY | 2021-02-11 13:15 | XMS REPORT | Continuity of Care Document ---
:2000 Author Organization [facility] t Address [address] [place] [address] Care Team Providers Name Role Phone Unavailable Unavailable Unavailable Payers Payer Name Policy Type Policy Number Effective Date Expiration Date S ource Problems This patient has no known problems. Allergies, Adverse Reactions, Alerts Allergy Allergy Status Severity Reaction(s) Onset Inactive Treating Comm ents Source Name Type Date Date Clinician No Known DA Active U 2019-02 [facility]12 [facility] 00:00: [address] No Known DA Active U 2019-02 [facility] 12 [facility] 00:00: [address] Medications This patient has no known medications. Procedures This patient has no known procedures. Encounters Start End Encounter Admission Attending Care Care Encounter Source Date/Time Date/Time Type Type Clinicians Facility Department ID 2019-12-01 Inpatient [facility] [id number] [facility] 10:17:[id number] [facility] Results Test Description Test Time Test Comments Results Result [facility] e Comments - XR SHOULDER 2+V 2019-12-01 Patient Name: RT 11:55:00 SRI MIKE Unit No: [id number] EXAMS: CPT CODE: [id number] XR SHOULDER 2+[place] [id number] EXAMINATION: - XR SHOULDER 2+V RT. LOCATION: B2. HISTORY: post redux. COMPARISON: Radiograph of same day at 1033 hours. TECHNIQUE: 2 views of the right shoulder were obtained. FINDINGS: There has been interval reduction of the right shoulder dislocation. The previously identified Hill-Sachs lesion is not well seen. IMPRESSION: Interval reduction of the right anterior shoulder dislocation. at 1155 Reported and signed by: Bernabe Del Rio MD CC: Silvino Stinson MD Technologist: KAI Gao, RT(R) Transcrpt Date/Tm/Trnsp: 12/01/2019 (1155) ChipPR7 Orig Print D/T: S: 12/01/2019 (1158) KAREN Leong NAME: SRI MIKE PHYS: [place] [address] : 2000 AGE: 19 SEX: M LOC: [facility] PHONE #: [phone] EXAM DATE: 12/01/2019 STATUS: PRE ER FAX #: [phone] RADIOLOGY NO: PAGE 1 Signed Report - XR SHOULDER 2+V 2019-12-01 Patient Name: RT 10:54:00 SRI MIKE Unit No: [id number] EXAMS: CPT CODE: [id number] XR SHOULDER 2+V RT [id number] LOCATION: T18 EXAM: RIGHT SHOULDER 3 VIEWS INDICATION: Right shoulder pain, dislocation. COMPARISON: None. TECHNIQUE: AP views in internal and external rotation and scapular Y view of the right shoulder FINDINGS: Anterior dislocation of the right shoulder present. AC joint is normal in alignment. Hill-Sachs deformity seen. IMPRESSION: Anterior dislocation with Hill-Sachs deformity. at 1054 Reported and signed by: Johnie Birch MD CC: Silvino Stinson MD Technologist: Rodrigo Pink, RT(R) Transcrpt Date/Tm/Trnsp: 12/01/2019 (1054) [id number] Orig Print D/T: S: 12/01/2019 (1057) [facility] NAME: SRI MIKE PHYS: [place] [address] : 2000 AGE: 19 SEX: M LOC: [facility] PHONE #: [phone] EXAM DATE: 12/01/2019 STATUS: PRE ER FAX #: [phone] RADIOLOGY NO: PAGE 1 Signed Report
[2021-02-11] MEDS ORDERED: LIDOCAINE 1% MPF 5 ML VIAL ONE (16:10)
--- NOTE | 2021-02-11 16:30 | ER ---
Nurse's Notes [facility] Name: Xander Whipple Age: 20 yrs Sex: Male : 2000 Arrival Date: 02/11/2021 Time: 13:15 Bed Treatment Private MD: Diagnosis: Laceration without foreign body of unspecified finger without damage to nail Presentation: 02/11 13:36 Chief complaint: Patient states: Laceration to R fifth digit that occurred just prior ss to arrival. No active bleeding noted at this time. Coronavirus screen: Client denies travel out of the [place] in the last 14 days. Ebola Screen: Patient denies exposure to infectious person. Patient denies travel to an Ebola-affected area in the 21 days before illness onset. Initial Sepsis Screen: Does the patient meet any 2 criteria? No. Patient's initial sepsis screen is negative. Does the patient have a suspected source of infection? No. Patient's initial sepsis screen is negative. Risk Assessment: Do you want to hurt yourself or someone else? Patient reports no desire to harm self or others. Onset of symptoms was February 11, 2021. 13:36 Method Of Arrival: Ambulatory ss 13:36 Acuity: LUX 4 ss Triage Assessment: 16:00 General: Appears in no apparent distress. Behavior is calm, cooperative, appropriate jh5 for age. Pain:. Historical: - Allergies: 13:39 NKA; ss - Home Meds: 13:39 None [Active]; ss - PMHx: 13:39 Depression; ss - PSHx: 13:39 None; ss - Immunization history:: Client reports having NOT received the Covid vaccine. - Social history:: Smoking status: Patient denies any tobacco usage or history of. Screenin:00 Abuse screen: Denies threats or abuse. Denies injuries from another. Nutritional jh5 screening: No deficits noted. Tuberculosis screening: No symptoms or risk factors identified. Fall Risk None identified. Vital Signs: 13:36 BP 115 / 73; Pulse 60; Resp 14; Temp 98.8(TE); Pulse Ox 100% ; Weight 58.97 kg; Height ss 5 ft. 9 in. (175.26 cm); Pain 8/10; 13:36 Body Mass Index 19.20 (58.97 kg, 175.26 cm) ED Course: 13:15 Patient arrived in ED. mr 13:39 Triage completed. 13:39 Arm band placed on left wrist. 15:53 Karthik Garrett PA is PHCP. jr8 15:53 Chris Morejon MD is Attending Physician. jr 16:00 Maranda Mendez, REMEDIOS is Primary Nurse. [facility] 16:00 Patient has correct armband on for positive identification. Call light in reach. Side [facility] rails up X 1. Administered Medications: 16:17 Drug: Lidocaine (1 %) 5 mg {Note: handed to KARTHIK CANTRELL to administer.} Route: Infiltration;[facility] Outcome: 16:30 Discharge ordered by . jr 16:33 Patient left the ED. [facility] Signatures: Rachel Montes mr DongSunni, REMEDIOS RN Karthik Garrett PA PA [facility] Maranda Mendez, RN RN [facility]
--- NOTE | 2021-02-11 16:30 | EDPHYS ---
Physician Documentation [facility] Name: Xander Whipple Age: 20 yrs Sex: Male : 2000 Arrival Date: 02/11/2021 Time: 13:15 Bed Treatment Private MD: ED Physician Chris Morejon HPI: 02/11 16:09 This 20 yrs old Male presents to ER via Ambulatory with complaints of Finger jr8 Laceration. 16:09 The patient has not experienced similar symptoms in the past. The patient has not jr8 recently seen a physician. Patient stated that he was pushing his trash down in the trash can and laceration his 5th digit on a piece of glass. Denies any other injury . Historical: - Allergies: 13:39 NKA; ss - Home Meds: 13:39 None [Active]; ss - PMHx: 13:39 Depression; ss - PSHx: 13:39 None; ss - Immunization history:: Client reports having NOT received the Covid vaccine. - Social history:: Smoking status: Patient denies any tobacco usage or history of. ROS: 16:09 Eyes: Negative for injury, pain, redness, and discharge, ENT: Negative for injury, jr8 pain, and discharge, Neck: Negative for injury, pain, and swelling, Cardiovascular: Negative for chest pain, palpitations, and edema, Respiratory: Negative for shortness of breath, cough, wheezing, and pleuritic chest pain, Abdomen/GI: Negative for abdominal pain, nausea, vomiting, diarrhea, and constipation, Back: Negative for injury and pain. 16:09 MS/extremity: Positive for laceration, pain, of the 5th digit right hand. 16:09 Skin: Positive for laceration(s). Exam: 16:10 Constitutional: This is a well developed, well nourished patient who is awake, alert, jr8 and in no acute distress. Cardiovascular: Regular rate and rhythm with a normal S1 and S2. No gallops, murmurs, or rubs. Normal PMI, no JVD. No pulse deficits. Respiratory: Lungs have equal breath sounds bilaterally, clear to auscultation and percussion. No rales, rhonchi or wheezes noted. No increased work of breathing, no retractions or nasal flaring. Skin: Warm, dry with normal turgor. Normal color with no rashes, no lesions, and no evidence of cellulitis. Neuro: Awake and alert, GCS 15, oriented to person, place, time, and situation. Cranial nerves II-XII grossly intact. Motor strength 5/5 in all extremities. Sensory grossly intact. 16:10 Musculoskeletal/extremity: Extremities: grossly normal except: noted in the 5th digit right hand: Patient has 2.5 cm laceration to the palmar aspect of the right 5th digit. Small amount of tendon exposed. Patient has full ROM Present to finger both passively and actively. Sensation intact with < 2 sec cap refill . Vital Signs: 13:36 BP 115 / 73; Pulse 60; Resp 14; Temp 98.8(TE); Pulse Ox 100% ; Weight 58.97 kg; Height ss 5 ft. 9 in. (175.26 cm); Pain 8/10; 13:36 Body Mass Index 19.20 (58.97 kg, 175.26 cm) ss Laceration: 16:30 Wound Repair of 2.5cm ( 1.0in ) subcutaneous laceration to right 5th digit. Linear jr8 shaped.. Minimal bleeding noted.. Distal neuro/vascular/tendon intact. Anesthesia: Digital block administered with 2 mls of 1% lidocaine. Wound prep: Extensive cleansing with hibiclenz, Wound explored extensively. Skin closed with 2 4-0 Prolene using interrupted sutures and sterile technique. Patient tolerated well. MDM: 15:53 Patient medically screened. jr8 16:27 Data reviewed: vital signs, nurses notes, and as a result, I will discharge patient. jr8 Data interpreted: Pulse oximetry: on room air is 100 %. Interpretation: normal. Counseling: I had a detailed discussion with the patient and/or guardian regarding: the historical points, exam findings, and any diagnostic results supporting the discharge/admit diagnosis, the need for outpatient follow up, a family practitioner, to return to the emergency department if symptoms worsen or persist or if there are any questions or concerns that arise at home. Administered Medications: 16:17 Drug: Lidocaine (1 %) 5 mg {Note: handed to KARTHIK CANTRELL to administer.} Route: Infiltration;[facility] Disposition Summary: 02/11/21 16:30 Discharge Ordered Location: Home jr Problem: new jr8 Symptoms: have improved jr8 Condition: Stable jr8 Diagnosis - Laceration without foreign body of unspecified finger without damage to nail jr8 Followup: jr8 - With: Emergency Department - When: 1 week - Reason: Wound Recheck, Recheck today's complaints, Continuance of care, Staple/Suture removal, Re-evaluation by your physician Discharge Instructions: - Discharge Summary Sheet jr8 - Laceration Care, Adult jr8 Forms: - Medication Reconciliation Form jr8 - Thank You Letter jr8 - Antibiotic Education jr8 - Prescription Opioid Use jr8 Addendum: 02/13/2021 18:49 Co-signature as Attending Physician, Chris Morejon MD. m a2 Signatures: Sunni Dong RN RN ss Karthik Garrett PA PA jr8 Chris Morejon MD MD ma2 Maranda Mendez RN RN jh5
[2021-02-11 16:36] VITALS: BP 115/73; TEMP 98.8; O2SAT 100
== END 2021-02-11 16:33 | disposition home or self-care (01) ==
LOC: ER 13:12
PROC: 0JQJ0ZZ Repair Right Hand Subcutaneous Tissue and Fascia, Open Approach (ICD-10-PCS; principal; 2021-02-11)
DX: S61.216A Laceration without foreign body of right little finger without damage to nail, initial encounter (principal); W25.XXXA Contact with sharp glass, initial encounter; Y93.E9 Activity, other interior property and clothing maintenance
CPT/HCPCS: 99282

== ENCOUNTER 2021-02-20 12:45 | Emergency (ER) | payer OTHER ==
--- OUTSIDE RECORDS SUMMARY | 2021-02-20 12:48 | XMS REPORT | Continuity of Care Document ---
:2000 Author Organization [facility] t Address [address] [place] [address] Care Team Providers Name Role Phone Unavailable Unavailable Unavailable Payers Payer Name Policy Type Policy Number Effective Date Expiration Date S ource Problems This patient has no known problems. Allergies, Adverse Reactions, Alerts Allergy Allergy Status Severity Reaction(s) Onset Inactive Treating Comm ents Source Name Type Date Date Clinician No Known DA Active U 2019-02 [facility] 00:00: [address] No Known DA Active U 2019-02 [facility] All[facility] 00:00: [address] Medications This patient has no known medications. Procedures This patient has no known procedures. Encounters Start End Encounter Admission Attending Care Care Encounter Source Date/Time Date/Time Type Type Clinicians Facility Department ID 2019-12-01 Inpatient [facility] [id number] [facility] 10:17:00 [id number] [facility] Results Test Description Test Time Test Comments Results Result [facility] e Comments - XR SHOULDER 2+V 2019-12-01 Patient Name: RT 11:55:00 SRI MIKE Unit No: [id number] EXAMS: CPT CODE: [id number] XR SHOULDER 2+V [place] 20003 EXAMINATION: - XR SHOULDER 2+V RT. LOCATION: [...] S: 12/01/2019 ([id number]) KAREN Leong NAME: SRI MIKE41 Steven PHYS: [place] [address] : 2000 AGE: 19 SEX: M LOC: [facility] PHONE #: [phone] EXAM DATE: 12/01/2019 STATUS: PRE ER FAX #: [phone] RADIOLOGY NO: PAGE 1 Signed Report - XR SHOULDER 2+V 2019-12-01 Patient Name: RT 10:54:00 SRI MIKE Unit No: [id number] EXAMS: CPT CODE: [id number] XR SHOULDER 2+[place] [id number] LOCATION: T18 EXAM: RIGHT SHOULDER 3 VIEWS [...] [id number] Orig Print D/T: S: 12/01/2019 ([id number]) [facility] Salo NAME: SRI MIKE PHYS: [place] [address] : 2000 AGE: 19 SEX: M LOC: [facility] PHONE #: [phone] EXAM DATE: 12/01/2019 STATUS: PRE ER FAX #: [phone] RADIOLOGY NO: PAGE 1 Signed Report
--- NOTE | 2021-02-20 13:22 | ER ---
Nurse's Notes [facility] Name: Xander Whipple Age: 20 yrs Sex: Male : 2000 Arrival Date: 02/20/2021 Time: 12:46 Bed DIS1 Private MD: Diagnosis: Encounter for removal of sutures Presentation: 02/20 13:14 Chief complaint: Patient states: needs sutures removed from right pinky, had them iw placed 10 days ago. Coronavirus screen: At this time, the client does not indicate any symptoms associated with coronavirus-19. Ebola Screen: Patient negative for fever greater than or equal to 101.5 degrees Fahrenheit, and additional compatible Ebola Virus Disease symptoms Patient denies exposure to infectious person. Patient denies travel to an Ebola-affected area in the 21 days before illness onset. No symptoms or risks identified at this time. Initial Sepsis Screen: Does the patient meet any 2 criteria? No. Patient's initial sepsis screen is negative. Does the patient have a suspected source of infection? No. Patient's initial sepsis screen is negative. Risk Assessment: Do you want to hurt yourself or someone else? Patient reports no desire to harm self or others. Onset of symptoms was February 20, 2021. 13:14 Method Of Arrival: Ambulatory iw 13:14 Acuity: LUX 4 iw Historical: - Allergies: 13:16 NKA; iw - PMHx: 13:16 Depression; iw Vital Signs: 13:14 Pulse 52; Resp 16; Temp 98.5; Pulse Ox 100% on R/A; iw ED Course: 12:46 Patient arrived in ED. ds1 13:15 Triage completed. iw 13:15 Arm band placed on. iw 13:16 David Garcia NP is PHCP. pm1 13:17 Pepe Mills MD is Attending Physician. pm1 13:29 Kymberly Pal RN is Primary Nurse. iw Administered Medications: No medications were administered Outcome: 13:22 Discharge ordered by . pm1 13:29 Patient left the ED. iw Signatures: Floodi ds1 Kymberly Pal RN RN iw David Garcia NP [employer] pm1
--- NOTE | 2021-02-20 13:22 | EDPHYS ---
Physician Documentation [facility] Name: Xander Whipple Age: 20 yrs Sex: Male : 2000 Arrival Date: 02/20/2021 Time: 12:46 Bed DIS1 Private MD: ED Physician Pepe Mills HPI: 02/20 13:21 This 20 yrs old Male presents to ER via Ambulatory with complaints of Suture pm1 Removal. 13:21 The patient has sutures on the right little finger. pm1 13:21 Previous treatment: the care was rendered at [facility] [place] [facility] Treatment type: The patient's original treatment included sutures. Sutures/socrates progress: The patient has no c/o's. The wound is well-healing with no redness, swelling, discharge, or dehiscence reported. The patient has not experienced similar symptoms in the past. The patient has not recently seen a physician. Presenting to ER for removal of his 3 sutures. reports no complications from laceration repair. Historical: - Allergies: 13:16 NKA; iw - PMHx: 13:16 Depression; iw ROS: 13:21 Constitutional: Negative for fever, chills, and weight loss, Cardiovascular: Negative pm1 for chest pain, palpitations, and edema, Respiratory: Negative for shortness of breath, cough, wheezing, and pleuritic chest pain, MS/Extremity: Negative for injury and deformity. 13:21 Neuro: Negative for headache, weakness, numbness, tingling, and seizure. 13:21 Skin: Positive for laceration(s), of the right little finger. 13:21 All other systems are negative. Exam: 13:21 Constitutional: This is a well developed, well nourished patient who is awake, alert, pm1 and in no acute distress. 13:21 Neuro: Awake and alert, GCS 15, oriented to person, place, time, and situation. Cranial nerves II-XII grossly intact. Motor strength 5/5 in all extremities. Sensory grossly intact. Cerebellar exam normal. Normal gait. 13:21 Cardiovascular: Exam negative for acute changes, Rate: normal, Rhythm: regular, Pulses: no pulse deficits are appreciated. 13:21 Respiratory: Exam negative for acute changes, respiratory distress, shortness of breath. 13:21 Skin: Wound recheck: Suture laceration closure: the wound is healing well, the edges are well approximated, no evidence of dehiscence, no drainage, no erythema. Vital Signs: 13:14 Pulse 52; Resp 16; Temp 98.5; Pulse Ox 100% on R/A; iw Procedures: 13:21 Suture/Staple removal: Removed 2 sutures, from right little finger, site appears well pm1 healed, Patient tolerated well. MDM: 13:21 Patient medically screened. pm1 13:21 Data reviewed: vital signs. Data interpreted: Pulse oximetry: on room air is 100 %. pm1 Interpretation: normal. Counseling: I had a detailed discussion with the patient and/or guardian regarding: the historical points, exam findings, and any diagnostic results supporting the discharge/admit diagnosis, the need for outpatient follow up, to return to the emergency department if symptoms worsen or persist or if there are any questions or concerns that arise at home. Administered Medications: No medications were administered Disposition: 18:52 Co-signature as Attending Physician, Pepe Mills MD I agree with the assessment and kdr plan of care. Disposition Summary: 02/20/21 13:22 Discharge Ordered Location: Home pm1 Problem: new pm1 Symptoms: have improved pm1 Condition: Stable pm1 Diagnosis - Encounter for removal of sutures pm1 Followup: pm1 - With: Emergency Department - When: As needed - Reason: Worsening of condition Followup: pm1 - With: Private Physician - When: As needed - Reason: Recheck today's complaints, Continuance of care, Re-evaluation by your physician Discharge Instructions: - Discharge Summary Sheet pm1 - Suture Removal, Care After pm1 Forms: - Medication Reconciliation Form pm1 - Thank You Letter pm1 - Antibiotic Education pm1 - Prescription Opioid Use pm1 Signatures: Pepe Mills MD MD kdr Kymberly Pal, REMEDIOS RN iw David Garcia NP HOTEL DIRECTOR pm1
[2021-02-20 13:33] VITALS: TEMP 98.5; O2SAT 100
== END 2021-02-20 13:29 | disposition home or self-care (01) ==
LOC: ER 12:45
DX: Z48.02 Encounter for removal of sutures (principal)
CPT/HCPCS: 99281